=== PATIENT | male | born 1945 | race Caucasian/White ===

== ENCOUNTER 2019-12-18 08:03 | Outpatient (CLI) | payer MEDICARE, SELFPAY ==
--- NOTE | 2019-12-18 08:09 | CT_ITS ---
WS: [id number] CT CHEST, ABDOMEN AND PELVIS WITH CONTRAST HISTORY: RENAL CELL CANCER TECHNIQUE: Contiguous 5 mm axial imaging performed through the chest, abdomen and pelvis with IV cont rast, oral contrast has been provided. Coronal and sagittal reformats chest. Coronal and sagittal ref ormats through the abdomen and pelvis. All CT scans at [facility] use at least one of the se dose optimization techniques: automated exposure control; mA and/or kV adjustment per patient size (includes targeted exams where dose is matched to clinical indication); or iterative reconstruction. CONTRAST: Visipaque 320; 95 mL IV. DLP: 1327.17 mGy.cm COMPARISON: 06/19/2019 and 02/22/[address]: Prior LEFT lower lobectomy. No pulmonary mass or pneumonia. No nodules. Mild dilatation of the ascending aorta at 4.1 cm. Mild atherosclerosis. Pulmonary artery size is normal. Mild enlargemen t of the heart chambers. No pericardial pleural effusion. No mediastinal or hilar adenopathy. 11 mm d istal paraesophageal lymph node is enhancing but not significantly increased in size. Abdomen CT: Small lymph nodes are reidentified superior and anterior to the RIGHT lobe of the liver a long the diaphragmatic surface, epiphrenic location. The largest measures 1.4 cm. Not significantly c hanged in size. Status post Whipple procedure. Mild pneumobilia and variable enhancement throughout the liver. No met astatic disease within the liver. There is very mild intrahepatic duct dilatation which is similar to the prior study. Prior cholecystectomy. Ovoid cystic mass in the region of the pancreatic head resec tion measures 3.0 x 6.4 cm and is similar to the prior examination. Thought to be related to the jeju nostomy. No progression since 06/19/2019 but increased in size since 02/22/2019. Prior splenectomy and LEFT nephrectomy. Mild cortical thinning of the RIGHT kidney. There are multiple cysts scattered thro ughout the parenchyma. There are a few that or not simple cysts. Scattered plaque within the aorta. RIGHT adrenal metastatic lesion is enhancing measuring 3.0 x 3.3 cm with increase in size since 2018. LEFT adrenal gland is normal size. Several lymph nodes along the lesser curvature the stomach of increased in size and number. The large st lymph node which is new measures 11 mm. Smaller stable lymph nodes at the celiac axis. Lymph node anterior to the IVC has increased slightly in size measuring 17 mm and is more lobulated in appearanc e. Pelvic CT: No free fluid in the pelvis. No adenopathy along the iliac chains. Partially distended uri nary bladder with wall thickening. Prostate gland central calcifications. No change in appearance of the osseous structures. No osteoblastic or osteolytic interval change. CT/CT chest abd pel w con* IMPRESSION: 1. Mild progression of mesenteric and retroperitoneal lymph nodes since 019. 2. Moderate increase in size of the metastatic lesion in the RIGHT adrenal gla nd. 3. No metastatic disease to the lungs. 4. Prior Whipple procedure, cholecystectomy, LEFT nephrectomy and splenectomy.
[2019-12-18] MEDS: iohexol 300 mg/mL 50 mL Btl PO (08:13)
[2019-12-18 08:28] LABS: Basophils # 0.1 10^3/uL (0.0-0.1); Basophils % 0.6 %; Eosinophils # 0.2 10^3/uL (0.0-0.8); Eosinophils % 1.8 %; Hematocrit 41.7 % (42.0-52.0); Hemoglobin 13.4 g/dL (11.7-16.6); Lymphocytes # 2.4 10^3/uL (0.8-4.8); Mean Corpuscular HGB Conc 32.1 g/dL (30.0-36.0); Mean Corpuscular Hemoglobin 26.4 pg (28.0-34.0); Mean Corpuscular Volume 82.2 fL (80-94); Mean Platelet Volume 11.8 fL (7.4-10.4); Monocytes # 1.7 10^3/uL (0.2-0.9); Monocytes % 14.7 %; Neutrophils # 7.4 10^3/uL (1.8-7.7); Neutrophils % 62.6 %; Nucleated Red Blood Cells % 0 %; Platelet Count 441 10^3/cmm (130-400); Red Blood Count 5.07 10^6/uL (4.1-5.3); Red Cell Distribution Width 14.5 % (12.1-15.1); White Blood Count 11.8 10^3/uL (4.0-10.0)
[2019-12-18 08:52] LABS: Alanine Aminotransferase 13 U/L (0-41); Albumin Level 3.6 g/dL (3.5-5.2); Alkaline Phosphatase 411 IU/L (40-130); Anion Gap 15.3 (5-19); Aspartate Amino Transferase 24 U/L (0-40); Blood Urea Nitrogen 20 mg/dL (8-23); Calcium 9.8 mg/dL (8.5-10.5); Carbon Dioxide 30 mmol/L (22-29); Chloride 96 mmol/L (98-107); Globulin 5.5 g/dL (1.3-4.6); Glucose 157 mg/dL (65-115); Lactate Dehydrogenase 120 U/L (135-225); Potassium 4.3 mmol/L (3.5-5.1); Sodium 137 mmol/L (136-145); Total Bilirubin 0.4 mg/dL (0.15-1.2); Total Protein 9.1 g/dL (6.6-8.7)
[2019-12-18] MEDS: iodixanol 320 mg/mL 100mL Btl IV (09:27)
== END 2019-12-18 08:04 | disposition home or self-care (01) ==
LOC: CT 08:06
PROVIDERS: Family Provider Nurse Practitioner; PCP Nurse Practitioner; Visit Provider Internal Medicine Medical Oncology
DX: C64.2 Malignant neoplasm of left kidney, except renal pelvis (principal); C79.71 Secondary malignant neoplasm of right adrenal gland; R59.0 Localized enlarged lymph nodes; Z93.4 Other artificial openings of gastrointestinal tract status; Z90.5 Acquired absence of kidney; Z90.2 Acquired absence of lung [part of]; Z90.81 Acquired absence of spleen; Z90.411 Acquired partial absence of pancreas
CPT/HCPCS: 36415; 71260; 74177; 80053; 83615; 85025

== ENCOUNTER 2019-12-20 13:03 | Outpatient (CLI) | payer MEDICARE, SELFPAY ==
--- NOTE | 2019-12-24 18:13 | ONC FU_ITS ---
Dr. Man Patient Follow-Up Note Patient: Stu Perez Unit #: [id number]: 1945 Dicatated By: Tanner Man M.D.Date of Visit:Dec 20, 2019 Onc Med Follow-up/Prog Note Chief Complaint: Renal cell cancer. History of Present Illness: This is a 74 year-old man with known metastatic renal cell cancer. He had undergone left radical nephrectomy for renal cell cancer in 2002. Those records are not available, but the records we do have available and indicate that he underwent an R0 resection of metastatic involvement in the pancreas in June 2011. The procedure included pancreaticoduodenectomy, splenectomy, and cholecystectomy. In October 2013 she underwent exploratory laparotomy with left lateral segment hepatectomy, but that pathology was benign. In September 2016 he underwent left lower lobe wedge resection followed by left lower lobectomy for a pulmonary nodule, and that also was confirmed to be metastatic renal cell cancer, but completely resected. A total of 12 lymph nodes were harvested with that procedure, all negative for metastatic involvement. I had seen him initially on 09/07/2017. He had presented with fever, lymphadenopathy, and suspected recurrence of the renal cell cancer. For the preceding month and a half he had been having fever on pretty much a daily basis. He had associated chills and night sweats. He also felt tired and worn out during this time, and his ECOG score had declined to 2. He still had good appetite, and his weight had been stable. His evaluation included CT scans of the chest, abdomen, and pelvis on 08/23/2017. Findings included mild generalized cardiomegaly with no suspicious pulmonary findings or pleural effusion. There were mildly enlarged right epiphrenic lymph nodes, the largest measuring 2.1 x 1.4 cm. Also noted was an enlarged internal mammary lymph node in the third right intercostal space. There was no axillary, mediastinal, or hilar adenopathy noted. The liver had a mildly lobulated contour, but the appearance was otherwise normal. There was mild intrahepatic bile duct dilatation, improved compared to study from January 2017. There was interval enlargement of several gastrohepatic, periportal, mesenteric, and retroperitoneal lymph nodes. The largest was an aorta iliac lymph node measuring 3 x 1.6 cm. Further evaluation with PET/CT on 09/09/2017 showed low-level activity in the right internal mammary lymph node, right epiphrenic lymph nodes, and retroperitoneal lymph nodes, likely indicating metastatic disease from renal cell carcinoma or pancreatic carcinoma. There was no evidence of other metabolically active tumor elsewhere in the body. His laboratory studies from 09/17/2017 included CBC showing mild anemia, hemoglobin 11.1 g. The white blood cell count was elevated at 20,100 with the platelet count elevated at 535,000. Sedimentation rate also was significantly elevated at 73 mm/hour with CRP elevated at 10.600 mg/dL. Chem profile showed normal renal function with BUN 15 and creatinine 1.0 mg/dL. The alkaline phosphatase was significantly elevated at 608/117 IU/L. The bilirubin and the other liver enzymes were normal. Albumin was low 2.0 g/dL. TSH was elevated at 12.100 mIU/mL. Given those findings, I opted to treat him empirically with doxycycline. I had seen him for a followup visit on 10/06/2017. His symptoms had improved dramatically, and at that point I had opted to just monitor him on observation/expectant management. Restaging CT scans of the chest/abdomen, and pelvis on 11/09/2017 showed no evidence of disease progressions. Right anterior epiphrenic and right internal mammary lymph nodes appeared stable. Periportal edema and biliary ductal dilatation appeared similar to the study from August 2017. The liver parenchymal attenuation and enhancement also appeared similar with no evidence of interval hepatic mass. There was slightly decreased retroperitoneal lymphadenopathy. I had seen him for a follow-up visit on 11/10/2017. At that point his alkaline phosphatase level had continued to increase. A subsequent bone scan also showed no evidence of metastatic disease. A restaging CT scans of the chest, abdomen, and pelvis on 02/22/2019 showed increase in size of epiphrenic lymph nodes, the largest cluster measuring 3.4 x 1.8 cm compared to 2.1 x 1 cm on previous studies. There were no focal liver lesions identified. A fluid collection adjacent to the surgical clips in the expected location of the pancreas was noted to have decreased. There was development of an enhancing nodule in the right adrenal gland measuring 1.7 x 1.2 cm. The left adrenal gland appeared unremarkable. The findings were felt to be consistent with metastatic disease. MRI of the abdomen on 02/26/2019 also showed findings consistent with right adrenal metastasis measuring 1.8 x 1.3 cm. Epiphrenic lymph nodes were noted, and there are also numerous enlarged lymph nodes in the gastrohepatic, celiac, periportal, and periaortic distribution noted to be similar to the CT. I had seen him for a follow-up visit on 03/03/2019. He appeared stable clinically, and he opted to continue on observation/expectant management. Repeat CT scans of the chest, abdomen, and pelvis on 06/19/2019 showed right anterior phrenic lymphadenopathy similar to the January 2019 study. There did appear to be some increase in the right adrenal metastatic lesion measuring 1.7 x 2.7 cm compared to 1.2 x 1.9 cm in January. Intra-abdominal and retroperitoneal lymphadenopathy appeared stable or slightly decreased. Restaging PET/CT on 09/16/2019 showed only minimal FDG uptake in the right adrenal mass measuring 3.2 x 2.3 cm. This was felt to be suggestive of a lipid poor adenoma or treated malignancy. Multiple prominent lymph nodes in the left upper quadrant also did not have significant FDG uptake. A right periaortic retroperitoneal soft tissue lesion measuring 1.3 x 2.4 cm was mildly FDG avid, SUV 3.1. Additional soft tissue lesions were evident anterior to the left hepatic lobe, portal territory. These were felt to possibly represent splenules as opposed to metastatic nodes. With those findings, he prefer to continue observation/expectant management. Repeat CT scans of the chest, abdomen, and pelvis on 12/18/2019 showed no evidence of pulmonary nodules and no mediastinal or hilar adenopathy. An 11 mm distal paraesophageal lymph node was noted to have enhancement but was not significantly increased in size. Small lymph nodes superior and anterior to the right lobe of the liver along the diaphragmatic surface were reidentified and not significantly changed in size. The largest measured 1.4 cm. Ovoid cystic mass in the region of the pancreatic head resection measuring 3.0 x 6.4 cm appeared similar to the prior study. There was very mild intrahepatic duct dilatation, similar to the prior study. The right adrenal metastatic lesion was noted to have increased in size measuring 3.0 x 3.3 cm. Several lymph nodes along the lesser curvature of the stomach had also increased in size and number, the largest measuring 11 mm. Smaller nodes at the celiac axis appeared stable. A node anterior to the IVC had increased in size measuring 17 mm. There were no osteoblastic or osteolytic bone lesions identified. He is seen for a followup visit. He has been feeling good generally. He has pretty good energy and he has normal activity. ECOG score is 0. His appetite has been good. His weight is been stable. He has no fever or night sweats. He had a little bit of a cold a few months ago, those symptoms have completely resolved. He does not complain of shortness of breath, cough, or chest pain. He has no GI/ complaints other than occasional heartburn. He has no significant joint or bone pain. He does not complain of headache or dizziness. He has a little bit of numbness/tingling in his toes. He has no other focal neurologic symptoms. Medications: AmLODIPine Besylate 1 (5 mg) Tablet Oral daily, Benazepril HCl 1 (20 mg) Tablet Oral daily, Carafate 2 (1 G) Tablet Oral b.i.d., Creon 2 Capsule (of 90618 Units) Capsule Delayed Release Particles Oral daily, Flonase 1 Rowley(s) (of 50 mcg/act) Suspension Nasal b.i.d. PRN, HumaLOG 7 Units Subcutaneous t.i.d. PRN, Lantus 20 Units (of 100 Units/mL) Subcutaneous at bedtime, Levothyroxine Sodium 1 (137 mcg) Tablet Oral daily Allergies: BANDAIDS, LATEX, and MEDICAL TAPE. Review of Systems: Constitutional - He has pretty good energy. His activity is normal. Appetite is good and weight is stable. No fever or night sweats. ECOG score is 0, ENMT - No sinus congestion/drainage. No mouth sores. No sore throat or difficulty swallowing, Hematologic/Lymphatic - No abnormal bruising or bleeding, Respiratory - No shortness of breath. No cough. No pleuritic pain or hemoptysis, Cardiovascular - No angina pain. No palpitations, Gastrointestinal - No nausea or vomiting. He occasionally has heartburn. No diarrhea or constipation. No blood in the stool or black stools, Genitourinary (M) - No dysuria or hematuria. No urinary frequency. No urgency or incontinence, Musculoskeletal - No joint or bone pain, Integumentary - No skin complications, Neurologic - No headache or dizziness. He has a little bit of numbness and tingling in his toes, Psychiatric - No anxiety or depression. No insomnia. Vital Signs: Performed on Dec 20, 2019 13:31 Height - 69.00 in Weight - 182.4 lbs (HIGH) BSA - 1.99 sq.m BMI - 26.94 Temperature - 97.5 F (LOW) Pulse - 61 /min Respiration - 18 /min BP - 155/84 mm(hg) (HIGH) O2 Sat - 99 % Pain - 0 Physical Examination: Constitutional - He looks good generally, Eyes - Sclerae nonicteric. Conjunctivae clear, ENMT - No lesions noted in the oral cavity, Hematologic/Lymphatic - No cervical, clavicular, or axillary adenopathy, Respiratory - Lungs are clear, Cardiovascular - Heart rhythm is regular. There is a II/ systolic murmur. There is no gallop or rub noted, Abdomen - Soft. Liver is not enlarged. There is no abdominal mass or ascites noted and there is no inguinal adenopathy, Extremities - No edema, Neurologic - No focal neurologic deficits noted. Lab/Imaging: Test performed on Sep 21, 2019 10:42 LDH (Total) 129 U/L Sodium 135 mmol/L Potassium 4.5 mmol/L Chloride 95 mmol/L CO2 29 mmol/L Anion Gap 15.5 BUN 20 mg/dL Creatinine 1.2 mg/dL Cr Clearance (Est) 64.02 mL/min Glucose 133 mg/dl Calcium 9.9 mg/dL Protein, Total 8.3 g/dL Albumin 4.5 g/dL Globulin 3.8 gm/dL Bilirubin, Total 0.5 mg/dL ALT (SGPT) 16 U/L AST (SGOT) 25 U/L Alkaline Phosphatase 394 U/L WBC 12.8 10 3/uL RBC 5.01 10 6/uL HGB 13.5 g/dL HCT 42.9 % MCV 85.6 fl MCH 26.9 pg MCHC 31.5 g/dl RDW 14.4 % Platelet Count 461 10 3/cmm MPV 12.2 fl Neutrophils 8.0 10 3/uL Lymphocytes 2.4 10 3/uL Monocytes 2.1 10 3/uL Eosinophils 0.2 10 3/uL Basophils 0.1 10 3/uL Neutrophil % 63.0 % Lymphocyte % 18.7 % Monocyte % 16.2 % Eosinophil % 1.3 % Basophils % 0.6 % Impression: 1. Patient with stage IV renal cell cancer, previously with disease completely resected. He presents with fever and lymphadenopathy, suspicious for further recurrence of his renal cell cancer, though there is also the possibility of an infectious process. 2. He had originally undergone left nephrectomy in 2002. 3. In 2010 he underwent R0 resection of metastatic involvement in the pancreas. The procedure included pancreatectomy, splenectomy, and cholecystectomy. 4. In September 2016 he underwent complete resection of left lower lobe lung metastasis. That procedure included wedge resection followed by left lower lobectomy. His other medical illnesses include: 5. Hypertension. 6. Type II diabetes. 7. GERD. 8. Hypothyroidism. 9. Nephrolithiasis. His laboratory evaluation in September showed mild anemia with associated leukocytosis and thrombocytosis. He had significantly elevated sedimentation rate and CRP levels and his alkaline phosphatase also was significantly elevated. He was given empiric antibiotic therapy with doxycycline, and his clinical status improved dramatically. On his follow-up in November 2017 he still had increasing alkaline phosphatase, but without evidence of disease progression by CT scan or bone scan. At that point he continued on observation/expectant management. Restaging CT and MRI studides in January 2019 showed evidence of new right adrenal metastasis as well as multiple sites of suspected lymph node involvement. At that time he was not overtly symptomatic, and he opted to continue on observation/expectant management. During follow-up there has been further increase in the size of the right adrenal lesion. By PET CT it now measures 3.2 x 2.3 cm compared to 1.7 x 1.2 cm in January 2019. It did not show significant FDG uptake, but as it does appear to be showing progressive enlargement, the appearance was highly suggestive of metastasis. At that point he was still doing well clinically, and he preferred to continue observation/expectant management. His current CT now shows further progression of the right adrenal metastatic lesion. There also has been slight increase in some of the lymph nodes in the lower chest/upper abdomen. He continues to have significantly elevated alkaline phosphatase level. His clinical status remained stable, but the CT findings are consistent with a slowly progressive metastatic process. Plan: The CT findings and CT images were reviewed with the patient and his . Given the continued progression of the right adrenal metastasis, I am going to review his scans again with the radiologist to determine whether he may have a site of disease that is accessible for biopsy. Signed By: Tanner Man M.D. <<Signature on File>>
== END 2019-12-20 13:04 | disposition home or self-care (01) ==
PROVIDERS: Family Provider Nurse Practitioner; PCP Nurse Practitioner; Visit Provider Internal Medicine Medical Oncology
DX: C79.71 Secondary malignant neoplasm of right adrenal gland (principal); Z85.528 Personal history of other malignant neoplasm of kidney; R74.8 Abnormal levels of other serum enzymes; I10 Essential (primary) hypertension; E11.9 Type 2 diabetes mellitus without complications; K21.9 Gastro-esophageal reflux disease without esophagitis; E03.9 Hypothyroidism, unspecified; Z87.442 Personal history of urinary calculi; Z92.21 Personal history of antineoplastic chemotherapy; Z90.410 Acquired total absence of pancreas; Z90.5 Acquired absence of kidney; Z90.2 Acquired absence of lung [part of]; Z90.49 Acquired absence of other specified parts of digestive tract
CPT/HCPCS: 99214

== ENCOUNTER → 2020-01-08 07:35 | Day surgery (SDC) | payer MEDICARE, SELFPAY ==
[2020-01-05 16:08] VITALS: BMI 24.4
[2020-01-08 08:10] VITALS: BP 146/95; PULSE 62; RESP 18; TEMP 36.2; O2SAT 99
[2020-01-08] MEDS: sodium chloride 0.9% 1,000 ML 30 ML (08:30)
[2020-01-08 08:31] LABS: Glucose Point of Care 147 mg/dL (70-110)
[2020-01-08 08:48] LABS: INR 1.09 (0.8-1.2)
[2020-01-08 08:49] LABS: Partial Thromboplastin Time 35.1 SECONDS (23.9-36.7)
--- NOTE | 2020-01-08 10:28 | SUR.OPER ---
CT bx canceled per Dr. Felix after talking with Dr. Man about the risks related to the location and vascular access around the mass.
== END ==
PROVIDERS: Family Provider Nurse Practitioner; PCP Nurse Practitioner; Visit Provider Internal Medicine Medical Oncology
DX: Z53.8 Procedure and treatment not carried out for other reasons (principal); C64.9 Malignant neoplasm of unspecified kidney, except renal pelvis
CPT/HCPCS: 36415; 36416; 82962; 85610; 85730; J2250; J2310; J3010; J3490; J7030

== ENCOUNTER 2020-09-02 07:29 | Outpatient (CLI) | payer MEDICARE, SELFPAY ==
--- NOTE | 2020-09-02 07:45 | XRR_ITS ---
PROCEDURE INFORMATION: Exam: XR Abdomen, 1 View Exam date and time: 09/02/2020 7:50 AM Age: 75 years old Clinical indication: Condition or disease; Kidney or ureter condition; Calculus (stone) in kidney; Prior surgery; Surgery type: Pancreas, spleen, gallbladder, part of liver, stomach, left kidney removal; Additional info: Renal stone TECHNIQUE: Imaging protocol: XR of the abdomen. Views: Frontal supine view of the abdomen. 1 View. COMPARISON: CT chest abd pel w con* 12/18/2019 9:32 AM FINDINGS: Gastrointestinal tract: bowel gas pattern is nonspecific. Air filled large bowel including distal rectal gas. Moderate amount stool throughout the large bowel. Intraperitoneal space: Numerous surgical clips in the mid epigastrium and left upper abdomen. Likely prior nephrectomy. Bones/joints: Unremarkable. XR/XR KUB [id number] IMPRESSION: 1. Bowel gas pattern is nonspecific. Air filled large bowel including distal rectal gas. 2. Moderate amount stool throughout the large bowel.
== END 2020-09-02 07:30 | disposition home or self-care (01) ==
PROVIDERS: Family Provider Nurse Practitioner; PCP Nurse Practitioner; Visit Provider Urology
DX: N20.0 Calculus of kidney (principal)
CPT/HCPCS: 74018; 81003

== ENCOUNTER 2021-09-02 06:44 | Outpatient (CLI) | payer MEDICARE, SELFPAY ==
--- NOTE | 2021-09-02 07:15 | XRR_ITS ---
PROCEDURE INFORMATION: Exam: XR Abdomen Exam date and time: 09/02/2021 7:15 AM Age: 76 years old Clinical indication: Condition or disease; Other: Urolithiasisi TECHNIQUE: Imaging protocol: XR of the abdomen. Views: Frontal supine view of the abdomen. 1 View. COMPARISON: CR XR KUB [id number] 09/02/2020 7:44 AM FINDINGS: Tubes, catheters and devices: Numerous surgical clips are present. Gastrointestinal tract: Normal. No bowel dilation. Organs: A 5 mm calcification projects on the lower pole of the right kidney. No calcifications are seen in the course of the ureters. Bones/joints: Unremarkable. XR/XR KUB [id number] IMPRESSION: 1. Right nephrolithiasis. 2. No acute abnormality . Radiation Dose CTDIVOL = (mGy): DLP = (mGy-cm)
== END 2021-09-02 06:45 | disposition home or self-care (01) ==
PROVIDERS: PCP Nurse Practitioner; Visit Provider Urology
DX: N20.0 Calculus of kidney (principal)
CPT/HCPCS: 74018; 81003

== ENCOUNTER 2021-09-02 08:41 | Outpatient (CLI) | payer MEDICARE, SELFPAY ==
[2021-09-02 09:17] LABS: Basophils # 0.1 10^3/uL (0.0-0.1); Basophils % 0.6 %; Eosinophils # 0.2 10^3/uL (0.0-0.8); Eosinophils % 1.9 %; Hematocrit 43.7 % (42.0-52.0); Hemoglobin 13.7 g/dL (11.7-16.6); Lymphocytes # 2.8 10^3/uL (0.8-4.8); Lymphocytes % 23.1 %; Mean Corpuscular HGB Conc 31.4 g/dL (30.0-36.0); Mean Corpuscular Volume 86.2 fl (80-94); Mean Platelet Volume 12.7 fL (7.4-10.4); Monocytes % 16.4 %; Neutrophils # 7.11 10^3/uL (1.8-7.7); Neutrophils % 57.8 %; Nucleated Red Blood Cells % 0 %; Platelet Count 419 10^3/cmm (130-400); Red Blood Count 5.07 10^6/uL (4.1-5.3); Red Cell Distribution Width 15.6 % (12.1-15.1); White Blood Count 12.3 10^3/uL (4.0-10.0)
[2021-09-02 09:43] LABS: Alanine Aminotransferase 14 U/L (0-41); Albumin Level 3.8 g/dL (3.5-5.2); Alkaline Phosphatase 385 IU/L (40-130); Aspartate Amino Transferase 24 U/L (0-40); Blood Urea Nitrogen 18 mg/dL (8-23); Calcium 9.4 mg/dL (8.5-10.5); Carbon Dioxide 31 mmol/L (22-29); Chloride 97 mmol/L (98-107); Globulin 4.4 g/dL (1.3-4.6); Glucose 76 mg/dL (65-115); Osmolality Calculated 283 mOsm/kg (285-295); Sodium 136 mmol/L (136-145); Total Bilirubin 0.5 mg/dL (0.15-1.2); Total Protein 8.2 g/dL (6.6-8.7)
[2021-09-02 09:45] LABS: Anion Gap 12.4 (5-19); Lactate Dehydrogenase 184 U/L (135-225); Potassium 4.4 mmol/L (3.5-5.1)
[2021-09-02 09:56] LABS: Slide Review Slide Review Perform
[2021-09-03 14:22] LABS: Erythrocyte Sedimentation Rate 25 mm/hr (0-10)
== END 2021-09-02 08:42 | disposition home or self-care (01) ==
LOC: ONCMED 08:44
PROVIDERS: PCP Nurse Practitioner; Visit Provider Internal Medicine Medical Oncology
DX: C64.2 Malignant neoplasm of left kidney, except renal pelvis (principal); C78.02 Secondary malignant neoplasm of left lung; C78.89 Secondary malignant neoplasm of other digestive organs; N20.0 Calculus of kidney
CPT/HCPCS: 36415; 74018; 80053; 81003; 83615; 85025; 85651

== ENCOUNTER 2021-09-04 06:38 | Outpatient (CLI) | payer MEDICARE, SELFPAY ==
--- NOTE | 2021-09-08 06:20 | ONC FU_ITS ---
Dr. Man Patient Follow-Up Note Patient: Stu Perez Unit #: [id number]: 1945 Dicatated By: Tanner Man M.D.Date of Visit:Sep 04, 2021 Onc Med Follow-up/Prog Note Chief Complaint: Renal cell cancer. History of Present Illness: This is a 76 year-old man with known metastatic renal cell cancer. He had undergone left radical nephrectomy for renal cell cancer in 2002. The available records indicated that he underwent an R0 resection of metastatic involvement in the pancreas in June 2011. The procedure included pancreaticoduodenectomy, splenectomy, and cholecystectomy. In October 2013 he underwent exploratory laparotomy with left lateral segment hepatectomy, but that pathology was benign. In September 2016 he underwent left lower lobe wedge resection followed by left lower lobectomy for a pulmonary nodule, and that also was confirmed to be metastatic renal cell cancer, but completely resected. A total of 12 lymph nodes were harvested with that procedure, all negative for metastatic involvement. I had seen him initially on 09/07/2017. He had presented with fever, lymphadenopathy, and suspected recurrence of the renal cell cancer. For the preceding month and a half he had been having fever on pretty much a daily basis. He had associated chills and night sweats. He also felt tired and worn out during this time, and his ECOG score had declined to 2. He still had good appetite, and his weight had been stable. His evaluation included CT scans of the chest, abdomen, and pelvis on 08/23/2017. Findings included mild generalized cardiomegaly with no suspicious pulmonary findings or pleural effusion. There were mildly enlarged right epiphrenic lymph nodes, the largest measuring 2.1 x 1.4 cm. Also noted was an enlarged internal mammary lymph node in the third right intercostal space. There was no axillary, mediastinal, or hilar adenopathy noted. The liver had a mildly lobulated contour, but the appearance was otherwise normal. There was mild intrahepatic bile duct dilatation, improved compared to study from January 2017. There was interval enlargement of several gastrohepatic, periportal, mesenteric, and retroperitoneal lymph nodes. The largest was an aorta iliac lymph node measuring 3 x 1.6 cm. Further evaluation with PET/CT on 09/09/2017 showed low-level activity in the right internal mammary lymph node, right epiphrenic lymph nodes, and retroperitoneal lymph nodes, likely indicating metastatic disease from renal cell carcinoma or pancreatic carcinoma. There was no evidence of other metabolically active tumor elsewhere in the body. His laboratory studies from 09/17/2017 included CBC showing mild anemia, hemoglobin 11.1 g. The white blood cell count was elevated at 20,100 with the platelet count elevated at 535,000. Sedimentation rate also was significantly elevated at 73 mm/hour with CRP elevated at 10.600 mg/dL. Chem profile showed normal renal function with BUN 15 and creatinine 1.0 mg/dL. The alkaline phosphatase was significantly elevated at 608/117 IU/L. The bilirubin and the other liver enzymes were normal. Albumin was low 2.0 g/dL. TSH was elevated at 12.100 mIU/mL. Given those findings, I opted to treat him empirically with doxycycline. I had seen him for a followup visit on 10/06/2017. His symptoms had improved dramatically, and at that point I had opted to just monitor him with expectant management. Restaging CT scans of the chest/abdomen, and pelvis on 11/09/2017 showed no evidence of disease progressions. Right anterior epiphrenic and right internal mammary lymph nodes appeared stable. Periportal edema and biliary ductal dilatation appeared similar to the study from August 2017. The liver parenchymal attenuation and enhancement also appeared similar with no evidence of interval hepatic mass. There was slightly decreased retroperitoneal lymphadenopathy. I had seen him for a follow-up visit on 11/10/2017. At that point his alkaline phosphatase level had continued to increase. A subsequent bone scan also showed no evidence of metastatic disease. A restaging CT scans of the chest, abdomen, and pelvis on 02/22/2019 showed increase in size of epiphrenic lymph nodes, the largest cluster measuring 3.4 x 1.8 cm compared to 2.1 x 1 cm on previous studies. There were no focal liver lesions identified. A fluid collection adjacent to the surgical clips in the expected location of the pancreas was noted to have decreased. There was development of an enhancing nodule in the right adrenal gland measuring 1.7 x 1.2 cm. The left adrenal gland appeared unremarkable. The findings were felt to be consistent with metastatic disease. MRI of the abdomen on 02/26/2019 also showed findings consistent with right adrenal metastasis measuring 1.8 x 1.3 cm. Epiphrenic lymph nodes were noted, and there are also numerous enlarged lymph nodes in the gastrohepatic, celiac, periportal, and periaortic distribution noted to be similar to the CT. I had seen him for a follow-up visit on 03/03/2019. He appeared stable clinically, and he opted to continue on observation/expectant management. Repeat CT scans of the chest, abdomen, and pelvis on 06/19/2019 showed right anterior phrenic lymphadenopathy similar to the January 2019 study. There did appear to be some increase in the right adrenal metastatic lesion measuring 1.7 x 2.7 cm compared to 1.2 x 1.9 cm in January. Intra-abdominal and retroperitoneal lymphadenopathy appeared stable or slightly decreased. Restaging PET/CT on 09/16/2019 showed only minimal FDG uptake in the right adrenal mass measuring 3.2 x 2.3 cm. This was felt to be suggestive of a lipid poor adenoma or treated malignancy. Multiple prominent lymph nodes in the left upper quadrant also did not have significant FDG uptake. A right periaortic retroperitoneal soft tissue lesion measuring 1.3 x 2.4 cm was mildly FDG avid, SUV 3.1. Additional soft tissue lesions were evident anterior to the left hepatic lobe, portal territory. These were felt to possibly represent splenules as opposed to metastatic nodes. With those findings, he prefer to continue observation/expectant management. Repeat CT scans of the chest, abdomen, and pelvis on 12/18/2019 showed no evidence of pulmonary nodules and no mediastinal or hilar adenopathy. An 11 mm distal paraesophageal lymph node was noted to have enhancement but was not significantly increased in size. Small lymph nodes superior and anterior to the right lobe of the liver along the diaphragmatic surface were reidentified and not significantly changed in size. The largest measured 1.4 cm. Ovoid cystic mass in the region of the pancreatic head resection measuring 3.0 x 6.4 cm appeared similar to the prior study. There was very mild intrahepatic duct dilatation, similar to the prior study. The right adrenal metastatic lesion was noted to have increased in size measuring 3.0 x 3.3 cm. Several lymph nodes along the lesser curvature of the stomach had also increased in size and number, the largest measuring 11 mm. Smaller nodes at the celiac axis appeared stable. A node anterior to the IVC had increased in size measuring 17 mm. There were no osteoblastic or osteolytic bone lesions identified. He was seen for a follow-up visit on 12/20/2019. He was feeling good generally. After reviewing the CT scans with the radiologist, it was recommended that he have a CT directed liver biopsy. He was also recommended to be seen again in 1 month, but he failed to return for follow-up. His other medical illnesses include hypertension, type 2 diabetes, hypothyroidism, and GERD. He also has a history of nephrolithiasis. He had smoked in the past, only for couple of years, and he quit back in 1963. He is seen now for a follow-up visit. He says he feels good. He has good energy and has normal activity. His appetite also is good. He has no fever or night sweats. He says his sinuses are occasionally stopped up. He has not had sore mouth or throat. He does not complain of shortness of breath, cough, or chest pain. He has no GI/ complaints other than frequent urination. He has no significant joint or bone pain. He does not complain of headache or dizziness, and he has no focal neurologic symptoms. Medications: AmLODIPine Besylate 1 (5 mg) Tablet Oral daily, Benazepril HCl 1 (20 mg) Tablet Oral daily, Carafate 2 (1 G) Tablet Oral b.i.d., Creon 2 Capsule (of 49365 Units) Capsule Delayed Release Particles Oral daily, Flonase 1 [place](s) (of 50 mcg/act) Suspension Nasal b.i.d. PRN, HumaLOG 7 Units Subcutaneous t.i.d. PRN, Lantus 20 Units (of 100 Units/mL) Subcutaneous at bedtime, Levothyroxine Sodium 1 (125 mcg) Tablet Oral daily Allergies: BANDAIDS, LATEX, and MEDICAL TAPE. Vital Signs: Performed on Sep 04, 2021 08:53 Height - 69.00 in Weight - 180.2 lbs (LOW) BSA - 1.98 sq.m BMI - 26.61 Temperature - 97.9 F (LOW) Pulse - 50 /min (LOW) Respiration - 18 /min BP - 145/84 mm(hg) (HIGH) O2 Sat - 98 % Pain - 0 Fatigue - 0 Physical Examination: Constitutional - He looks good generally, Eyes - Sclerae nonicteric. Conjunctivae clear, ENMT - No lesions noted in the oral cavity, Hematologic/Lymphatic - No cervical, clavicular, or axillary adenopathy, Respiratory - Lungs are clear, Cardiovascular - Heart rhythm is regular. There is a II/ systolic murmur. There is no gallop or rub noted, Abdomen - Soft. Liver is not enlarged. There is no abdominal mass or ascites noted and there is no inguinal adenopathy, Extremities - No edema, Neurologic - No focal neurologic deficits noted. Lab/Imaging: CBC shows hemoglobin 13.7 g, white blood cell count 12,300, and platelet count 419,000. Comprehensive metabolic profile shows normal renal function with BUN 18 and creatinine 1.0 mg/dL. Sed rate is just mildly elevated at 25 mm/h. The alkaline phosphatase remains significantly elevated at 385/130 IU/L. Bilirubin, SGOT, and SGPT levels are normal. LDH is normal 184 U/L. Problem List: 1. Patient with stage IV renal cell cancer, but with disease completely resected. 2. Hypertension. 3. Type II diabetes. 4. GERD. 5. Hypothyroidism. 6. Nephrolithiasis. Problems Addressed with this Encounter and Plan: 1. Patient with stage IV renal cell cancer, but with disease completely resected. He had originally undergone left nephrectomy in 2002. In 2010 he underwent R0 resection of metastatic involvement in the pancreas. The procedure included pancreatectomy, splenectomy, and cholecystectomy. In September 2016 he underwent complete resection of left lower lobe lung metastasis. That procedure included wedge resection followed by left lower lobectomy. In September 2017 he had presented with fever, lymphadenopathy, elevated inflammatory markers, and significantly elevated alkaline phosphatase, suspicious for further recurrence of his renal cell cancer. However, he had complete resolution of his symptoms following empiric antibiotic therapy with doxycycline and he was then just followed expectantly. As of December 2019 his follow-up CT scans showed persistent lymphadenopathy and persistence of an ovoid cystic mass in the region of the pancreatic head resection measuring 3.0 x 6.4 cm. There was evidence of increased size of a suspected right adrenal metastatic lesion measuring 3.0 x 3.3 cm. He was recommended to have a CT directed needle biopsy, but for some reason that did not get scheduled, and then he failed to return for follow-up. He has since then had no further CT imaging. He has persistently elevated alkaline phosphatase level, but his laboratory studies are otherwise unremarkable and he seems to be doing very well clinically. As such, I think it would be reasonable to just continue with expectant management, but I will recommend that he have restaging CT scans with a follow-up visit in 3 months. 2. He has had clinical evidence of pancreatic insufficiency following his pancreatic head resection in 2010. He has had symptomatic improvement with Creon, 2 capsules of 24,000 units taken daily, and that will be continued at the same dosage. Signed By: Tanner Man M.D. <<Signature on File>>
== END 2021-09-04 06:39 | disposition home or self-care (01) ==
LOC: ONCMED 06:38
PROVIDERS: PCP Nurse Practitioner; Visit Provider Internal Medicine Medical Oncology
DX: Z08 Encounter for follow-up examination after completed treatment for malignant neoplasm (principal); Z85.53 Personal history of malignant neoplasm of renal pelvis; I10 Essential (primary) hypertension; E11.9 Type 2 diabetes mellitus without complications; K21.9 Gastro-esophageal reflux disease without esophagitis; E03.9 Hypothyroidism, unspecified; N20.0 Calculus of kidney; Z79.899 Other long term (current) drug therapy; Z79.2 Long term (current) use of antibiotics
CPT/HCPCS: 99214

== ENCOUNTER 2021-11-10 08:26 | Emergency (ER) | payer MEDICARE, SELFPAY ==
[2021-11-10 08:30] VITALS: BP 153/82; PULSE 59; RESP 16; TEMP 36.7; O2SAT 97; BMI 24.4
--- NOTE | 2021-11-10 08:41 | ED_ITS ---
HPI - Neuro Symptoms/Deficit General: Chief Complaint: Neuro Symptoms/Deficit Stated Complaint: stroke like symptoms Time Seen by Provider: 11/10/21 08:35 History of Present Illness: HPI Narrative: 76-year-old male presents to ER with left sided facial drooping. Reports this started 2 days ago. Reports pain in his left ear that has since gone away. Cannot close his left eye, reports left eye is watery, no vision changes. Has not been having any problems swa llowing, but has difficulty drinking due to water dribbling out of the left corner of his mouth and has to chew on the right side of his mouth. Has never had these symptoms before. No falls or arm/leg weakness. Abnormal sensation on the tip of the tongue Onset (ago): day(s) (2) Location: left face Context: sudden onset Associated symptoms: Deny chest pain, malaise, nausea or vomiting Review of Systems Const: Denies: fever(s), chills, body aches, change in appetite, fatigue or malaise ENMT: Denies: throat pain, ear or mastoid pain, nasal discharge or nasal congestion Card: Denies: chest pain, edema, dyspnea on exertion or orthopnea Resp: Denies: dyspnea or productive cough GI: Denies: abdominal pain, nausea, vomiting, hematemesis, coffee ground emesis, diarrhea, constipation, bloating, hematochezia or melena : Denies: flank pain, dysuria, urinary frequency or urinary urgency Skin/Breast: Denies: rash or pruritus PFSH ED PFSH: Medical History DM2 (diabetes mellitus, type 2) HTN (hypertension) Hypothyroidism 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 Urolithiasis Surgical History History of left radical nephrectomy History of lobectomy of lung PARTIAL History of pancreatectomy Hx of cholecystectomy Hx of resection of small bowel Hx of splenectomy Status post laser lithotripsy of ureteral calculus Family History Father , AT AGE 64 KIDNEY CANCER Cancer Mother , AT AGE 83 CAD (coronary artery disease) Social History (Reviewed 11/10/21 @ 09:27 by DRE Ferrara Smoking and tobacco status: former smoker Alcohol intake: never Adopted: No Caregiver/support person: No Lives independently: No Household members: spouse Marital status: Current occupational status: retired History of recent travel: No Physical Exam Const: COMMON NORMALS: average body habitus, patient oriented x3 and alert GENERAL APPEARANCE: cooperative, comfortable, well kempt and well developed NUTRITIONAL APPEARANCE: not obese ORIENTATION/CONSCIOUSNESS: Yes awake, Yes oriented to person and Yes oriented to place HENMT: COMMON NORMALS: normocephalic, atraumatic, EAC's normal, TM's normal bilaterally, Normal external nose present, moist oral mucous membranes and oropharynx normal HEAD & SCALP: normocephalic and atraumatic NOSE: Normal external nose present EXTERNAL AUDITORY CANAL: EAC's normal TYMPANIC MEMBRANE: TM's normal bilaterally MOUTH: Normal oral and palatal mucosa present, lip normal and tongue normal THROAT: posterior oropharynx normal and tonsils normal OTHER: Left sided facial droopiness, left eyelid drooping. Unable to close left eye. Eye: COMMON NORMALS: Equal, round and reactive pupils present, EOMs intact bilaterally, conjunctivae normal and no scleral icterus CONJUNCTIVA: Yes conjunctivae normal PUPIL: Yes Equal, round and reactive pupils present Neck/C-Spine: COMMON NORMALS: no meningeal signs Resp: COMMON NORMALS: normal respiratory effort, No retractions, No use of accessory muscles and clear to auscultation bilaterally AUSCULTATION: clear to auscultation bilaterally Cardio: COMMON NORMALS: regular rate and regular rhythm RATE: regular rate RHYTHM: regular rhythm HEART SOUNDS: no murmurs GI: COMMON NORMALS: Normal to inspection, nondistended, normoactive bowel sounds present, Soft to palpation and No hepatosplenomegaly present PALPATION: Yes Soft to palpation and Yes No hepatosplenomegaly present Extremity: COMMON NORMALS: no clubbing, cyanosis or edema NARRATIVE EXTREMITY EXAM: No upper or lower extremity weakness. Neuro: COMMON NORMALS: patient oriented x3 SENSORIUM/ORIENTATION: Yes alert, Yes oriented to person and Yes oriented to place MENINGEAL SIGNS: Yes no meningeal signs Psych: APPEARANCE: Yes well kempt Skin: COMMON NORMALS: no rashes or lesions noted and turgor normal GENERAL SKIN EXAM: no rashes or lesions noted and turgor normal Course Vital Signs: Vital signs: Vital Signs Temperature 98.0 F 11/10/21 09:03 Pulse Rate 57 L 11/10/21 09:16 Respiratory Rate 17 11/10/21 09:16 Blood Pressure 130/83 11/10/21 09:16 Pulse Oximetry 97 11/10/21 09:16 MDM - Neuro Symptoms/Deficit MDM Narrative: Medical decision making narrative: 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 Discussed diagnosis. We will start him on prednisone and have him follow-up with his primary care doctor in the next week also have him use Lacri-Lube at night for the left eye. Discharge Plan Discharge Patient Disposition: Home Clinical Impression: Perales's palsy Condition: Stable Prescriptions: New prednisone 20 mg tablet 20 mg PO TID 5 Days Qty: 15 RF: 0 No Action Creon 24,000-76,000 -120,000 unit capsule,delayed release(DR/EC) 2 cap PO QID RF: 0 levothyroxine 150 mcg capsule 150 mcg PO DAILY RF: 0 amlodipine 5 mg tablet 5 mg PO DAILY RF: 0 benazepril 20 mg tablet 20 mg PO DAILY RF: 0 sucralfate 1 gram tablet 1 g PO DAILY RF: 0 fluticasone propionate 50 mcg/actuation spray,suspension 50 mcg INTRANASAL DAILY RF: 0 insulin lispro [Humalog KwikPen Insulin] 100 unit/mL insulin pen SUBCUT RF: 0 Lantus Solostar U-100 Insulin 100 unit/mL (3 mL) insulin pen SUBCUT RF: 0 Discharge Orders: Discharge ED (Routine); Ordered 11/10/21 Ordered By: Tonny Nelson Referrals: Sangeeta Rothman APN [Primary Care Provider] - Patient Instructions: Perales Palsy (ED), Opioid Safety Activity Restrictions/Additional Instructions: Follow-up with your primary care doctor within the next week return to the ER if you have further problems. Coding Level of Care Code ED Green Building Engineer for dAan Fwd Exam Comprehensive
[2021-11-10 09:03] VITALS: BP 153/82; PULSE 59; RESP 16; TEMP 36.7; O2SAT 97
[2021-11-10 09:16] VITALS: BP 130/83; PULSE 57; RESP 17; O2SAT 97
--- NOTE | 2021-11-10 09:39 | PC.NURSE ---
Left Voicemail to supervisor picking crew Lacrilube OTC and place drops in Left eye as directed.
== END 2021-11-10 09:14 | disposition home or self-care (01) ==
PROVIDERS: Emergency Provider Family Medicine; PCP Nurse Practitioner
DX: G51.0 Bell's palsy (principal); Z79.4 Long term (current) use of insulin; E11.9 Type 2 diabetes mellitus without complications; I10 Essential (primary) hypertension; Z85.89 Personal history of malignant neoplasm of other organs and systems; Z90.2 Acquired absence of lung [part of]; Z87.891 Personal history of nicotine dependence
CPT/HCPCS: 99283

== ENCOUNTER 2021-12-08 13:37 | Outpatient (CLI) | payer MEDICARE, SELFPAY ==
[2021-12-08 14:19] LABS: Basophils # 0.1 10^3/uL (0.0-0.1); Basophils % 0.6 %; Eosinophils # 0.2 10^3/uL (0.0-0.8); Eosinophils % 1.8 %; Hematocrit 41.6 % (42.0-52.0); Hemoglobin 13.2 g/dL (11.7-16.6); Lymphocytes # 2.8 10^3/uL (0.8-4.8); Lymphocytes % 23.9 %; Mean Corpuscular HGB Conc 31.7 g/dL (30.0-36.0); Mean Corpuscular Volume 85.2 fl (80-94); Mean Platelet Volume 11.9 fL (7.4-10.4); Monocytes # 1.7 10^3/uL (0.2-0.9); Monocytes % 14.4 %; Neutrophils # 7.03 10^3/uL (1.8-7.7); Nucleated Red Blood Cells % 0 %; Platelet Count 463 10^3/cmm (130-400); Red Blood Count 4.88 10^6/uL (4.1-5.3); Red Cell Distribution Width 15.5 % (12.1-15.1); White Blood Count 11.9 10^3/uL (4.0-10.0)
[2021-12-08 14:55] LABS: Alanine Aminotransferase 10 U/L (0-41); Albumin Level 4.1 g/dL (3.5-5.2); Alkaline Phosphatase 435 IU/L (40-130); Anion Gap 15.1 (5-19); Aspartate Amino Transferase 19 U/L (0-40); Blood Urea Nitrogen 17 mg/dL (8-23); Calcium 8.8 mg/dL (8.5-10.5); Carbon Dioxide 29 mmol/L (22-29); Chloride 96 mmol/L (98-107); Globulin 3.6 g/dL (1.3-4.6); Glucose 86 mg/dL (65-115); Lactate Dehydrogenase 319 U/L (135-225); Osmolality Calculated 281 mOsm/kg (285-295); Potassium 5.1 mmol/L (3.5-5.1); Sodium 135 mmol/L (136-145); Total Bilirubin 0.4 mg/dL (0.15-1.2); Total Protein 7.7 g/dL (6.6-8.7)
== END 2021-12-08 13:38 | disposition home or self-care (01) ==
PROVIDERS: PCP Nurse Practitioner; Visit Provider Internal Medicine Medical Oncology
DX: C64.2 Malignant neoplasm of left kidney, except renal pelvis (principal); C78.01 Secondary malignant neoplasm of right lung; C78.02 Secondary malignant neoplasm of left lung; C78.89 Secondary malignant neoplasm of other digestive organs; Z90.81 Acquired absence of spleen
CPT/HCPCS: 36415; 80053; 83615; 85025

== ENCOUNTER 2021-12-10 06:47 | Outpatient (CLI) | payer MEDICARE, SELFPAY ==
--- NOTE | 2021-12-10 17:31 | ONC FU_ITS ---
Dr. Man Patient Follow-Up Note Patient: Stu Perez Unit #: [id number]: 1945 Dicatated By: Tanner Man M.D.Date of Visit:Dec 10, 2021 Onc Med Follow-up/Prog Note Chief Complaint: Renal cell cancer. History of Present Illness: This is a 76 year-old man with metastatic renal cell cancer, completely resected. He had undergone left radical nephrectomy for renal cell cancer in 2002. The available records indicated that he underwent an R0 resection of metastatic involvement in the pancreas in June 2011. The procedure included pancreaticoduodenectomy, splenectomy, and cholecystectomy. In October 2013 he underwent exploratory laparotomy with left lateral segment hepatectomy, but that pathology was benign. In September 2016 he underwent left lower lobe wedge resection followed by left lower lobectomy for a pulmonary nodule, and that also was confirmed to be metastatic renal cell cancer, but completely resected. A total of 12 lymph nodes were harvested with that procedure, all negative for metastatic involvement. I had seen him initially on 09/07/2017. He had presented with fever, lymphadenopathy, and suspected recurrence of the renal cell cancer. For the preceding month and a half he had been having fever on pretty much a daily basis. He had associated chills and night sweats. He also felt tired and worn out during this time, and his ECOG score had declined to 2. He still had good appetite, and his weight had been stable. His evaluation included CT scans of the chest, abdomen, and pelvis on 08/23/2017. Findings included mild generalized cardiomegaly with no suspicious pulmonary findings or pleural effusion. There were mildly enlarged right epiphrenic lymph nodes, the largest measuring 2.1 x 1.4 cm. Also noted was an enlarged internal mammary lymph node in the third right intercostal space. There was no axillary, mediastinal, or hilar adenopathy noted. The liver had a mildly lobulated contour, but the appearance was otherwise normal. There was mild intrahepatic bile duct dilatation, improved compared to study from January 2017. There was interval enlargement of several gastrohepatic, periportal, mesenteric, and retroperitoneal lymph nodes. The largest was an aorta iliac lymph node measuring 3 x 1.6 cm. Further evaluation with PET/CT on 09/09/2017 showed low-level activity in the right internal mammary lymph node, right epiphrenic lymph nodes, and retroperitoneal lymph nodes, likely indicating metastatic disease from renal cell carcinoma or pancreatic carcinoma. There was no evidence of other metabolically active tumor elsewhere in the body. His laboratory studies from 09/17/2017 included CBC showing mild anemia, hemoglobin 11.1 g. The white blood cell count was elevated at 20,100 with the platelet count elevated at 535,000. Sedimentation rate also was significantly elevated at 73 mm/hour with CRP elevated at 10.600 mg/dL. Chem profile showed normal renal function with BUN 15 and creatinine 1.0 mg/dL. The alkaline phosphatase was significantly elevated at 608/117 IU/L. The bilirubin and the other liver enzymes were normal. Albumin was low 2.0 g/dL. TSH was elevated at 12.100 mIU/mL. Given those findings, I opted to treat him empirically with doxycycline. I had seen him for a followup visit on 10/06/2017. His symptoms had improved dramatically, and at that point I had opted to just monitor him with expectant management. Restaging CT scans of the chest/abdomen, and pelvis on 11/09/2017 showed no evidence of disease progressions. Right anterior epiphrenic and right internal mammary lymph nodes appeared stable. Periportal edema and biliary ductal dilatation appeared similar to the study from August 2017. The liver parenchymal attenuation and enhancement also appeared similar with no evidence of interval hepatic mass. There was slightly decreased retroperitoneal lymphadenopathy. I had seen him for a follow-up visit on 11/10/2017. At that point his alkaline phosphatase level had continued to increase. A subsequent bone scan also showed no evidence of metastatic disease. A restaging CT scans of the chest, abdomen, and pelvis on 02/22/2019 showed increase in size of epiphrenic lymph nodes, the largest cluster measuring 3.4 x 1.8 cm compared to 2.1 x 1 cm on previous studies. There were no focal liver lesions identified. A fluid collection adjacent to the surgical clips in the expected location of the pancreas was noted to have decreased. There was development of an enhancing nodule in the right adrenal gland measuring 1.7 x 1.2 cm. The left adrenal gland appeared unremarkable. The findings were felt to be consistent with metastatic disease. MRI of the abdomen on 02/26/2019 also showed findings consistent with right adrenal metastasis measuring 1.8 x 1.3 cm. Epiphrenic lymph nodes were noted, and there are also numerous enlarged lymph nodes in the gastrohepatic, celiac, periportal, and periaortic distribution noted to be similar to the CT. I had seen him for a follow-up visit on 03/03/2019. He appeared stable clinically, and he opted to continue on observation/expectant management. Repeat CT scans of the chest, abdomen, and pelvis on 06/19/2019 showed right anterior phrenic lymphadenopathy similar to the January 2019 study. There did appear to be some increase in the right adrenal metastatic lesion measuring 1.7 x 2.7 cm compared to 1.2 x 1.9 cm in January. Intra-abdominal and retroperitoneal lymphadenopathy appeared stable or slightly decreased. Restaging PET/CT on 09/16/2019 showed only minimal FDG uptake in the right adrenal mass measuring 3.2 x 2.3 cm. This was felt to be suggestive of a lipid poor adenoma or treated malignancy. Multiple prominent lymph nodes in the left upper quadrant also did not have significant FDG uptake. A right periaortic retroperitoneal soft tissue lesion measuring 1.3 x 2.4 cm was mildly FDG avid, SUV 3.1. Additional soft tissue lesions were evident anterior to the left hepatic lobe, portal territory. These were felt to possibly represent splenules as opposed to metastatic nodes. With those findings, he prefer to continue observation/expectant management. Repeat CT scans of the chest, abdomen, and pelvis on 12/18/2019 showed no evidence of pulmonary nodules and no mediastinal or hilar adenopathy. An 11 mm distal paraesophageal lymph node was noted to have enhancement but was not significantly increased in size. Small lymph nodes superior and anterior to the right lobe of the liver along the diaphragmatic surface were reidentified and not significantly changed in size. The largest measured 1.4 cm. Ovoid cystic mass in the region of the pancreatic head resection measuring 3.0 x 6.4 cm appeared similar to the prior study. There was very mild intrahepatic duct dilatation, similar to the prior study. The right adrenal metastatic lesion was noted to have increased in size measuring 3.0 x 3.3 cm. Several lymph nodes along the lesser curvature of the stomach had also increased in size and number, the largest measuring 11 mm. Smaller nodes at the celiac axis appeared stable. A node anterior to the IVC had increased in size measuring 17 mm. There were no osteoblastic or osteolytic bone lesions identified. He was seen for a follow-up visit on 12/20/2019. He was feeling good generally. After reviewing the CT scans with the radiologist, it was recommended that he have a CT directed liver biopsy. He was also recommended to be seen again in 1 month, but he failed to return for follow-up. His other medical illnesses include hypertension, type 2 diabetes, hypothyroidism, and GERD. He also has a history of nephrolithiasis. He had smoked in the past, only for couple of years, and he quit back in 1963. Seth is seen for a follow-up visit. I had originally planned to have his CT scans repeated prior to the visit, but for some reason that did not get done. 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 Interestingly, just prior to that his had developed herpes zoster. He was treated with prednisone, but he was unable to tolerate it because of hyperglycemia. He has been feeling pretty good generally. He still has pretty good energy and he has normal activity. ECOG score is zero. His appetite is good. His weight is down just 3 pounds. He does not have fever or night sweats. He has not had sore mouth or throat, and he does not have difficulty swallowing. He does not complain of cough, and he has not been having shortness of breath or chest pain. He currently has no GI or complaints. He has no significant joint or bone pain. He does not complain of headache or dizziness. He has had no skin eruption. Medications: AmLODIPine Besylate 1 (5 mg) Tablet Oral daily, Benazepril HCl 1 (20 mg) Tablet Oral daily, Carafate 2 (1 G) Tablet Oral b.i.d., Creon 2 Capsule ([place] [address]43 Units) Capsule Delayed Release Particles Oral daily, Flonase 1 Thebes(s) (of 50 mcg/act) Suspension Nasal b.i.d. PRN, HumaLOG 7 Units Subcutaneous t.i.d. PRN, Lantus 20 Units (of 100 Units/mL) Subcutaneous at bedtime, Levothyroxine Sodium 1 (125 mcg) Tablet Oral daily Allergies: BANDAIDS, LATEX, and MEDICAL TAPE. Vital Signs: Performed on Dec 10, 2021 10:29 Height - 69.00 in Weight - 177.6 lbs (LOW) BSA - 1.96 sq.m BMI - 26.23 Temperature - 97.6 F (LOW) Pulse - 60 /min Respiration - 16 /min BP - 149/82 mm(hg) (HIGH) O2 Sat - 97 % Pain - 0 Fatigue - 3 Physical Examination: Constitutional - He looks pretty good generally, Eyes - Sclerae nonicteric. Conjunctivae clear, ENMT - No lesions noted in the oral cavity, Hematologic/Lymphatic - No cervical, clavicular, or axillary adenopathy, Respiratory - Lungs are clear, Cardiovascular - Heart rhythm is regular. There is a II/ systolic murmur. There is no gallop or rub noted, Abdomen - Soft. Liver is not enlarged. There is no abdominal mass or ascites noted and there is no inguinal adenopathy, Extremities - No edema, Neurologic - There is left facial paralysis which includes the forehead, consistent with Perales's palsy. Lab/Imaging: CBC shows hemoglobin 13.2 g, white blood cell count 11,900, and platelet count 463,000. Comprehensive metabolic profile shows stable renal function with BUN 17 and creatinine 1.1 mg/dL. Alkaline phosphatase remains elevated at 435/130 IU/L. The bilirubin and the other liver enzymes are normal. LDH is elevated at 319/225 U/L. Problem List: 1. Metastatic renal cell cancer, but with disease completely resected. 2. Hypertension. 3. Type II diabetes. 4. GERD. 5. Hypothyroidism. 6. Nephrolithiasis. Problems Addressed with this Encounter and Plan: 1. Patient with stage IV renal cell cancer, but with disease completely resected. He had originally undergone left nephrectomy in 2003. In 2010 he underwent R0 resection of metastatic involvement in the pancreas. The procedure included pancreatectomy, splenectomy, and cholecystectomy. In September 2016 he underwent complete resection of left lower lobe lung metastasis. That procedure included wedge resection followed by left lower lobectomy. In September 2017 he had presented with fever, lymphadenopathy, elevated inflammatory markers, and significantly elevated alkaline phosphatase, suspicious for further recurrence of his renal cell cancer. However, he had complete resolution of his symptoms following empiric antibiotic therapy with doxycycline and he was then just followed expectantly. As of December 2019 his follow-up CT scans showed persistent lymphadenopathy and persistence of an ovoid cystic mass in the region of the pancreatic head resection measuring 3.0 x 6.4 cm. There was evidence of increased size of a suspected right adrenal metastatic lesion measuring 3.0 x 3.3 cm. He was recommended to have a CT directed needle biopsy, but for some reason that did not get scheduled, and then he failed to return for follow-up. He has a persistently elevated alkaline phosphatase, but thus far he has had no further imaging. As such, he will be scheduled now for restaging CT scans of the chest, abdomen, and pelvis. He will have further evaluation as indicated. 2. 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 He was not able to tolerate steroid therapy. At that time his had developed herpes zoster eruption. She did have treatment with famciclovir. As a precaution, I am also going to treat him empirically with valacyclovir 1000 mg 3 times daily for 7 days. Signed By: Tanner Man M.D. <<Signature on File>>
== END 2021-12-10 06:48 | disposition home or self-care (01) ==
PROVIDERS: PCP Nurse Practitioner; Visit Provider Internal Medicine Medical Oncology
DX: C64.9 Malignant neoplasm of unspecified kidney, except renal pelvis (principal); Z90.5 Acquired absence of kidney; I10 Essential (primary) hypertension; E11.9 Type 2 diabetes mellitus without complications; K21.9 Gastro-esophageal reflux disease without esophagitis; E03.9 Hypothyroidism, unspecified; N20.0 Calculus of kidney; Z90.411 Acquired partial absence of pancreas; G51.0 Bell's palsy; B02.9 Zoster without complications; Z79.899 Other long term (current) drug therapy
CPT/HCPCS: 99214

== ENCOUNTER 2022-01-05 09:09 | Outpatient (CLI) | payer MEDICARE, SELFPAY ==
--- NOTE | 2022-01-05 09:33 | CT_ITS ---
WS: [id number] CT CHEST, ABDOMEN, AND PELVIS TECHNIQUE: Contrast-enhanced CT of the chest, abdomen, and pelvis with coronal and sagittal reformatt ed images. CLINICAL INFORMATION: MALIGNANT NEOPLASM LEFT KIDNEY COMPARISON: CT December 18, 2019, CT June 19, 2019 PET/CT 9 4019 DLP: 1605.[address] scans at [facility] use at least one of these dose optimization techniques: automated e xposure control; mA and/or kV adjustment per patient size (includes targeted exams where dose is matc hed to clinical indication); or iterative reconstruction. CT CHEST: Prior LEFT lower lobectomy. Ectatic ascending thoracic aorta measuring 4.1 cm is unchanged. No medias tinal or hilar lymphadenopathy. Both lungs are well aerated. No acute pulmonary infiltrates. No suspi cious pulmonary parenchymal abnormalities. No evidence of metastatic disease in the lungs. No axillar y lymphadenopathy. RIGHT paraesophageal lymph node measuring [address] ABDOMEN AND PELVIS: Prior postoperative changes with WHipple procedure with cholecystectomy and LEFT nephrectomy. Prior s plenectomy. Mild pneumobilia. Stable ovoid cystic mass in the pancreatic head similar to the prior ex amination. This is thought to be related to the prior jejunostomy. RIGHT adrenal metastatic lesion has significantly increased in size since the prior examination. Toda y this measures approximately 7.8 x 8.2 x 3.1 cm AP by transverse by craniocaudal compared to previou s measuring 3.0 x 3.3 CM. Mild lymphadenopathy progression compared to previous. Slightly progressed lymph nodes along the diap hragmatic surface anterior to the liver measuring 15 mm. Distal paraesophageal lymph node measuring 1 2 mm slightly progressed. Mild interval progression of the upper abdominal mesenteric lymph nodes and periaortic and aortocaval lymph nodes slightly more prominent today. Numerous lymph nodes along the lesser curvature the stomach appear stable. Hepatomegaly. Heterogeneous liver enhancement. Pneumobilia. Normal portal vein and splenic vein. Norm al caliber abdominal aorta. Normal celiac and SMA. Normal sigmoid colon. Enlarged calcified prostate measuring 4.5 CM. Simple RIGHT renal cysts. CT/CT chest abd pel w con* IMPRESSION: 1. Prior Whipple procedure with cholecystectomy and LEFT nephrectomy with sple nectomy. 2. Significant progression of the heterogeneously enhancing centrally necrotic RIGHT adrenal mass today measuring 7.8 x 8.2 x 2.1 cm. 3. Mild interval progression of the mesenteric, periaortic, aortocaval, and re troperitoneal lymph nodes 4. Stable cystic lesion in the pancreas. 5. Hepatomegaly with pneumobilia. 6. No evidence of metastatic disease in the lungs.
[2022-01-05] MEDS: iohexol 300 mg/mL 50 mL Btl PO (10:27)
[2022-01-05] MEDS: iodixanol 320 mg/mL 100mL Btl IV (10:50)
== END 2022-01-05 09:10 | disposition home or self-care (01) ==
PROVIDERS: PCP Nurse Practitioner; Visit Provider Internal Medicine Medical Oncology
DX: C64.2 Malignant neoplasm of left kidney, except renal pelvis (principal); C78.02 Secondary malignant neoplasm of left lung; C78.89 Secondary malignant neoplasm of other digestive organs; K86.89 Other specified diseases of pancreas; R16.0 Hepatomegaly, not elsewhere classified
CPT/HCPCS: 71260; 74177

== ENCOUNTER 2022-01-08 07:45 | Outpatient (CLI) | payer MEDICARE, SELFPAY ==
--- NOTE | 2022-01-11 11:17 | ONC FU_ITS ---
Dr. Man Patient Follow-Up Note Patient: Stu Perez Unit #: [id number]: 1945 Dicatated By: Tanner Man M.D.Date of Visit:Jan 08, 2022 Onc Med Follow-up/Prog Note Chief Complaint: Renal cell cancer. History of Present Illness: This is a 76 year-old man with metastatic renal cell cancer, completely resected. He had undergone left radical nephrectomy for renal cell cancer in 2002. The available records indicated that he underwent an R0 resection of metastatic involvement in the pancreas in June 2011. The procedure included pancreaticoduodenectomy, splenectomy, and cholecystectomy. In October 2013 he underwent exploratory laparotomy with left lateral segment hepatectomy, but that pathology was benign. In September 2016 he underwent left lower lobe wedge resection followed by left lower lobectomy for a pulmonary nodule, and that also was confirmed to be metastatic renal cell cancer, but completely resected. A total of 12 lymph nodes were harvested with that procedure, all negative for metastatic involvement. I had seen him initially on 09/07/2017. He had presented with fever, lymphadenopathy, and suspected recurrence of the renal cell cancer. For the preceding month and a half he had been having fever on pretty much a daily basis. He had associated chills and night sweats. He also felt tired and worn out during this time, and his ECOG score had declined to 2. He still had good appetite, and his weight had been stable. His evaluation included CT scans of the chest, abdomen, and pelvis on 08/23/2017. Findings included mild generalized cardiomegaly with no suspicious pulmonary findings or pleural effusion. There were mildly enlarged right epiphrenic lymph nodes, the largest measuring 2.1 x 1.4 cm. Also noted was an enlarged internal mammary lymph node in the third right intercostal space. There was no axillary, mediastinal, or hilar adenopathy noted. The liver had a mildly lobulated contour, but the appearance was otherwise normal. There was mild intrahepatic bile duct dilatation, improved compared to study from January 2017. There was interval enlargement of several gastrohepatic, periportal, mesenteric, and retroperitoneal lymph nodes. The largest was an aorta iliac lymph node measuring 3 x 1.6 cm. Further evaluation with PET/CT on 09/09/2017 showed low-level activity in the right internal mammary lymph node, right epiphrenic lymph nodes, and retroperitoneal lymph nodes, likely indicating metastatic disease from renal cell carcinoma or pancreatic carcinoma. There was no evidence of other metabolically active tumor elsewhere in the body. His laboratory studies from 09/17/2017 included CBC showing mild anemia, hemoglobin 11.1 g. The white blood cell count was elevated at 20,100 with the platelet count elevated at 535,000. Sedimentation rate also was significantly elevated at 73 mm/hour with CRP elevated at 10.600 mg/dL. Chem profile showed normal renal function with BUN 15 and creatinine 1.0 mg/dL. The alkaline phosphatase was significantly elevated at 608/117 IU/L. The bilirubin and the other liver enzymes were normal. Albumin was low 2.0 g/dL. TSH was elevated at 12.100 mIU/mL. Given those findings, I opted to treat him empirically with doxycycline. I had seen him for a followup visit on 10/06/2017. His symptoms had improved dramatically, and at that point I had opted to just monitor him with expectant management. Restaging CT scans of the chest/abdomen, and pelvis on 11/09/2017 showed no evidence of disease progressions. Right anterior epiphrenic and right internal mammary lymph nodes appeared stable. Periportal edema and biliary ductal dilatation appeared similar to the study from August 2017. The liver parenchymal attenuation and enhancement also appeared similar with no evidence of interval hepatic mass. There was slightly decreased retroperitoneal lymphadenopathy. I had seen him for a follow-up visit on 11/10/2017. At that point his alkaline phosphatase level had continued to increase. A subsequent bone scan also showed no evidence of metastatic disease. A restaging CT scans of the chest, abdomen, and pelvis on 02/22/2019 showed increase in size of epiphrenic lymph nodes, the largest cluster measuring 3.4 x 1.8 cm compared to 2.1 x 1 cm on previous studies. There were no focal liver lesions identified. A fluid collection adjacent to the surgical clips in the expected location of the pancreas was noted to have decreased. There was development of an enhancing nodule in the right adrenal gland measuring 1.7 x 1.2 cm. The left adrenal gland appeared unremarkable. The findings were felt to be consistent with metastatic disease. MRI of the abdomen on 02/26/2019 also showed findings consistent with right adrenal metastasis measuring 1.8 x 1.3 cm. Epiphrenic lymph nodes were noted, and there are also numerous enlarged lymph nodes in the gastrohepatic, celiac, periportal, and periaortic distribution noted to be similar to the CT. I had seen him for a follow-up visit on 03/03/2019. He appeared stable clinically, and he opted to continue on observation/expectant management. Repeat CT scans of the chest, abdomen, and pelvis on 06/19/2019 showed right anterior phrenic lymphadenopathy similar to the January 2019 study. There did appear to be some increase in the right adrenal metastatic lesion measuring 1.7 x 2.7 cm compared to 1.2 x 1.9 cm in January. Intra-abdominal and retroperitoneal lymphadenopathy appeared stable or slightly decreased. Restaging PET/CT on 09/16/2019 showed only minimal FDG uptake in the right adrenal mass measuring 3.2 x 2.3 cm. This was felt to be suggestive of a lipid poor adenoma or treated malignancy. Multiple prominent lymph nodes in the left upper quadrant also did not have significant FDG uptake. A right periaortic retroperitoneal soft tissue lesion measuring 1.3 x 2.4 cm was mildly FDG avid, SUV 3.1. Additional soft tissue lesions were evident anterior to the left hepatic lobe, portal territory. These were felt to possibly represent splenules as opposed to metastatic nodes. With those findings, he prefer to continue observation/expectant management. Repeat CT scans of the chest, abdomen, and pelvis on 12/18/2019 showed no evidence of pulmonary nodules and no mediastinal or hilar adenopathy. An 11 mm distal paraesophageal lymph node was noted to have enhancement but was not significantly increased in size. Small lymph nodes superior and anterior to the right lobe of the liver along the diaphragmatic surface were reidentified and not significantly changed in size. The largest measured 1.4 cm. Ovoid cystic mass in the region of the pancreatic head resection measuring 3.0 x 6.4 cm appeared similar to the prior study. There was very mild intrahepatic duct dilatation, similar to the prior study. The right adrenal metastatic lesion was noted to have increased in size measuring 3.0 x 3.3 cm. Several lymph nodes along the lesser curvature of the stomach had also increased in size and number, the largest measuring 11 mm. Smaller nodes at the celiac axis appeared stable. A node anterior to the IVC had increased in size measuring 17 mm. There were no osteoblastic or osteolytic bone lesions identified. He was seen for a follow-up visit on 12/20/2019. He was feeling good generally. After reviewing the CT scans with the radiologist, it was recommended that he have a CT directed biopsy of the adrenal mass, but for some reason the procedure was never done. He was then seen for a follow-up visit in September 2021. At that point he appeared stable clinically, and he opted to just continue with expectant management. His other medical illnesses include hypertension, type 2 diabetes, hypothyroidism, and GERD. He also has a history of nephrolithiasis. He had smoked in the past, only for couple of years, and he quit back in 1963. INTERIM HISTORY: He return for a follow-up visit on 12/10/2021. 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 He has otherwise appeared stable clinically. His alkaline phosphatase remains significantly elevated at 435/130 IUs/L, but that was similar to previous studies. His restaging CT scans of the chest, abdomen, and pelvis showed significant progression of the heterogeneously enhancing centrally necrotic right adrenal mass measuring 7.8 x 8.2 x 2.1 cm. There is mild interval progression of mesenteric, periaortic, aortocaval, and retroperitoneal lymph nodes. There was no other metastatic disease noted. A cystic lesion in the pancreas appeared stable. He is seen today to review the CT findings and to discuss further management. He is still feeling fine. Medications: AmLODIPine Besylate 1 (5 mg) Tablet Oral daily, Benazepril HCl 1 (20 mg) Tablet Oral daily, Carafate 2 (1 G) Tablet Oral b.i.d., Creon 2 Capsule (of 48281 Units) Capsule Delayed Release Particles Oral daily, Flonase 1 [place](s) (of 50 mcg/act) Suspension Nasal b.i.d. PRN, HumaLOG 7 Units Subcutaneous t.i.d. PRN, Lantus 20 Units (of 100 Units/mL) Subcutaneous at bedtime, Levothyroxine Sodium 1 (125 mcg) Tablet Oral daily Allergies: BANDAIDS, LATEX, and MEDICAL TAPE. Vital Signs: Performed on Jan 08, 2022 08:12 Height - 69.00 in Weight - 178.6 lbs (HIGH) BSA - 1.97 sq.m BMI - 26.37 Temperature - 97.8 F (LOW) Pulse - 64 /min Respiration - 16 /min BP - 136/85 mm(hg) O2 Sat - 96 % Pain - 0 Fatigue - 4 Problem List: 1. Metastatic renal cell cancer, but with disease completely resected. 2. Hypertension. 3. Type II diabetes. 4. GERD. 5. Hypothyroidism. 6. Nephrolithiasis. Problems Addressed with this Encounter and Plan: Patient with stage IV renal cell cancer, but with disease completely resected. He had originally undergone left nephrectomy in 2002. In 2010 he underwent R0 resection of metastatic involvement in the pancreas. The procedure included pancreatectomy, splenectomy, and cholecystectomy. In September 2016 he underwent complete resection of left lower lobe lung metastasis. That procedure included wedge resection followed by left lower lobectomy. In September 2017 he had presented with fever, lymphadenopathy, elevated inflammatory markers, and significantly elevated alkaline phosphatase, suspicious for further recurrence of his renal cell cancer. However, he had complete resolution of his symptoms following empiric antibiotic therapy with doxycycline and he was then just followed expectantly. As of December 2019 his follow-up CT scans showed persistent lymphadenopathy and persistence of an ovoid cystic mass in the region of the pancreatic head resection measuring 3.0 x 6.4 cm. There was evidence of increased size of a suspected right adrenal metastatic lesion measuring 3.0 x 3.3 cm. He was recommended to have a CT directed needle biopsy, but for some reason that did not get scheduled. His current CT scan shows a significant increase in the right adrenal mass, now measuring 7.8 x 8.2 x 2.1 cm compared to 3.0 x 3.3 cm in December 2019. There was mild progression of upper abdominal mesenteric, periaortic, and aortocaval adenopathy. The CT findings and images were reviewed with the patient and his . Given the significant increase in the adrenal mass, it needs to be evaluated with biopsy or perhaps even surgical resection. To that end, I have contacted Dr. Charla, and he will be seeing the patient to discuss further management. We also discussed the fact that if this is confirmed to be metastatic renal cell cancer, there are options available for systemic therapy. Signed By: Tanner Man M.D. <<Signature on File>>
== END 2022-01-08 07:46 | disposition home or self-care (01) ==
PROVIDERS: PCP Nurse Practitioner; Visit Provider Internal Medicine Medical Oncology
DX: Z85.89 Personal history of malignant neoplasm of other organs and systems (principal); E27.8 Other specified disorders of adrenal gland; I10 Essential (primary) hypertension; E11.9 Type 2 diabetes mellitus without complications; E03.9 Hypothyroidism, unspecified; K21.9 Gastro-esophageal reflux disease without esophagitis; Z79.899 Other long term (current) drug therapy; Z87.891 Personal history of nicotine dependence
CPT/HCPCS: 99214

== ENCOUNTER 2022-07-30 09:06 | Outpatient (CLI) | payer MEDICARE, SELFPAY ==
[2022-07-30] MEDS: iohexol 350 mg/mL 100 mL Btl PO (09:12)
[2022-07-30] MEDS: iohexol 350 mg/mL 100 mL Btl IV (09:15)
[2022-07-30 10:48] LABS: Blood Urea Nitrogen 21 mg/dL (8-23)
--- NOTE | 2022-07-30 11:00 | CT_ITS ---
WS: [id number] CT CHEST, ABDOMEN AND PELVIS WITH CONTRAST HISTORY: Restaging renal cancer. TECHNIQUE: Contiguous 5 mm axial imaging performed through the chest, abdomen and pelvis with IV cont rast, oral contrast has been provided. Coronal and sagittal reformats chest. Coronal and sagittal ref ormats through the abdomen and pelvis. All CT scans at [facility] use at least one of these d ose optimization techniques: automated exposure control; mA and/or kV adjustment per patient size (in cludes targeted exams where dose is matched to clinical indication); or iterative reconstruction. CONTRAST: Omnipaque 350; 50 mL IV. DLP: 1520.87 mGy.cm COMPARISON: 01/05/[address]: Status post LEFT lower lobectomy. Lungs are mildly hyperinflated. No pulmonary mass or nodu les are identified. No pericardial or pleural effusions. Mildly ectatic thoracic aorta. Ascending aor ta measures 4.1 cm. Scattered coronary artery calcifications. No adenopathy. Abdomen CT: Status post prior Whipple procedure. Distal RIGHT paraesophageal lymph node has decreased in size from 14 to 9 mm. Prior cholecystectomy. Pneumobilia is evident. Mild lobulations along the s urface of the liver. No enhancing mass identified. Small lymph nodes along the anterior surface of th e liver are stable. Spleen and LEFT kidney is been removed. Prior RIGHT adrenalectomy. LEFT adrenal g land is normal size. Scattered cysts throughout the RIGHT kidney. No solid mass identified. No obstru ction. Wall thickening involving the antrum of the stomach surrounding the sutures. Similar to prior studies . Cannot exclude tumor but this all may be postoperative and postinflammatory or related. Lymph nodes have not increased in size or number in the mesentery. Retroperitoneal and aortocaval and periaortic lymph nodes have significantly improved in size and number. Largest aortocaval lymph node now measur es 11 mm. Atherosclerosis aorta. No ascites. Pelvic CT: Diffuse fecal retention in the pelvis. No free fluid and no adenopathy. Partially distende d bladder. No osteoblastic or osteolytic lytic bone lesions are identified. CT/CT chest abd pel w con* IMPRESSION: 1. Status post LEFT lower lobectomy. No metastatic disease within the lungs ar e mediastinum. 2. Interval resection of the large RIGHT adrenal tumor. 3. Prior Whipple procedure, splenectomy and LEFT nephrectomy. 4. Overall there is been a moderate improvement in the size and number of the lymph nodes within the abdomen. None of the lymph nodes have increased in size. Largest lymph node is 11 mm in the aortocaval region. 5. There is mild soft tissue thickening involving the antrum of the stomach. S imilar to prior studies. 6. Diffuse constipation. 7. Heterogeneous appearance of the liver but no discrete mass identified.
== END 2022-07-30 09:07 | disposition home or self-care (01) ==
PROVIDERS: PCP Nurse Practitioner; Visit Provider Nurse Practitioner
DX: C79.71 Secondary malignant neoplasm of right adrenal gland (principal)
CPT/HCPCS: 71260; 74177; 82565; 84520

== ENCOUNTER 2022-08-04 07:34 | Oncology outpatient (recurring) (ONCR) | payer MEDICARE, SELFPAY ==
[2022-08-04 08:45] LABS: Basophils # 0.1 10^3/uL (0.0-0.1); Basophils % 0.6 %; Eosinophils # 0.1 10^3/uL (0.0-0.8); Hematocrit 39.6 % (42.0-52.0); Hemoglobin 12.6 g/dL (11.7-16.6); Lymphocytes # 1.8 10^3/uL (0.8-4.8); Lymphocytes % 22.5 %; Mean Corpuscular HGB Conc 31.8 g/dL (30.0-36.0); Mean Corpuscular Hemoglobin 27.5 pg (28.0-34.0); Mean Corpuscular Volume 86.3 fl (80-94); Mean Platelet Volume 13.1 fL (7.4-10.4); Monocytes # 1.2 10^3/uL (0.2-0.9); Monocytes % 14.5 %; Neutrophils % 61.3 %; Nucleated Red Blood Cells % 0 %; Platelet Count 301 10^3/cmm (130-400); Red Blood Count 4.59 10^6/uL (4.1-5.3); White Blood Count 8.2 10^3/uL (4.0-10.0)
[2022-08-04 08:53] LABS: Erythrocyte Sedimentation Rate 9 mm/hr (0-10)
[2022-08-04 09:10] LABS: Alanine Aminotransferase 27 U/L (0-41); Albumin Level 3.9 g/dL (3.5-5.2); Alkaline Phosphatase 312 U/L (40-130); Anion Gap 12.7 (5-19); Aspartate Amino Transferase 39 U/L (0-40); Blood Urea Nitrogen 20 mg/dL (8-23); Calcium 8.9 mg/dL (8.5-10.5); Carbon Dioxide 32 mmol/L (22-29); Chloride 95 mmol/L (98-107); Glucose 236 mg/dL (65-115); Lactate Dehydrogenase 192 U/L (135-225); Osmolality Calculated 290 mOsm/kg (285-295); Potassium 4.7 mmol/L (3.5-5.1); Sodium 135 mmol/L (136-145); Total Bilirubin 0.5 mg/dL (0.15-1.2); Total Protein 6.9 g/dL (6.6-8.7)
[2022-08-04 09:13] LABS: Slide Review Slide Review Perform
== END 2022-08-31 23:59 | disposition home or self-care (01) ==
PROVIDERS: Nurse Practitioner; PCP Nurse Practitioner; Visit Provider Internal Medicine Medical Oncology
DX: C79.71 Secondary malignant neoplasm of right adrenal gland (principal); K13.21 Leukoplakia of oral mucosa, including tongue; Z90.5 Acquired absence of kidney; Z85.528 Personal history of other malignant neoplasm of kidney
CPT/HCPCS: 36415; 80053; 83615; 85025; 85651; 99214

== ENCOUNTER 2022-09-02 08:19 | Outpatient (CLI) | payer MEDICARE, SELFPAY ==
--- NOTE | 2022-09-02 09:25 | XR_ITS ---
WS: [id number] KUB, AP view, 09/02/2022 Clinical Data: Urolithiasis Comparison: KUB, 09/02/2021 Findings: No abnormal intraabdominal masses or calcifications are seen. There is no dilatated small bowel or ev idence of obstruction. Fecal material obscures detail over both kidneys. There are surgical clips over the upper abdomen, m ainly in the left side of the abdomen. XR/XR KUB [id number] Impression: 1. Large amount of fecal material in the colon. 2. Numerous surgical clips in the upper abdomen.
== END 2022-09-02 08:20 | disposition home or self-care (01) ==
LOC: RAD 08:21
PROVIDERS: PCP Nurse Practitioner; Visit Provider Urology
DX: N20.9 Urinary calculus, unspecified (principal); C64.9 Malignant neoplasm of unspecified kidney, except renal pelvis
CPT/HCPCS: 74018; 99213

== ENCOUNTER 2023-02-16 08:05 | Oncology outpatient (recurring) (ONCR) | payer MEDICARE, SELFPAY ==
[2023-02-16 08:30] LABS: Hematocrit 41.2 % (42.0-52.0); Hemoglobin 13.2 g/dL (11.7-16.6); Mean Corpuscular Hemoglobin 28.8 pg (28.0-34.0); Mean Corpuscular Volume 89.8 fl (80-94); Platelet Count 303 10^3/cmm (130-400); Red Blood Count 4.59 10^6/uL (4.1-5.3); Red Cell Distribution Width 15.5 % (12.1-15.1); White Blood Count 10.4 10^3/uL (4.0-10.0)
[2023-02-16 08:31] LABS: Basophils % 0.4 %; Eosinophils # 0.1 10^3/uL (0.0-0.8); Eosinophils % 0.6 %; Lymphocytes % 18.8 %; Mean Platelet Volume 12.5 fL (7.4-10.4); Monocytes # 1.3 10^3/uL (0.2-0.9); Monocytes % 12.4 %; Neutrophils # 6.98 10^3/uL (1.8-7.7); Neutrophils % 67.3 %; Nucleated Red Blood Cells % 0 %
[2023-02-16 08:56] LABS: Alanine Aminotransferase 18 U/L (0-41); Albumin Level 3.7 g/dL (3.5-5.2); Alkaline Phosphatase 182 U/L (40-130); Anion Gap 13.2 (5-19); Aspartate Amino Transferase 25 U/L (0-40); Blood Urea Nitrogen 20 mg/dL (8-23); Calcium 8.9 mg/dL (8.5-10.5); Carbon Dioxide 30 mmol/L (22-29); Chloride 95 mmol/L (98-107); Globulin 3.1 g/dL (1.3-4.6); Glucose 166 mg/dL (65-115); Lactate Dehydrogenase 180 U/L (135-225); Osmolality Calculated 284 mOsm/kg (285-295); Potassium 4.2 mmol/L (3.5-5.1); Sodium 134 mmol/L (136-145); Total Bilirubin 0.4 mg/dL (0.15-1.2); Total Protein 6.8 g/dL (6.6-8.7)
[2023-02-16 09:14] LABS: Slide Review Slide Review Perform
== END 2023-02-28 23:59 | disposition home or self-care (01) ==
PROVIDERS: PCP Nurse Practitioner; Visit Provider Internal Medicine Medical Oncology
DX: Z08 Encounter for follow-up examination after completed treatment for malignant neoplasm (principal); Z90.5 Acquired absence of kidney; Z85.528 Personal history of other malignant neoplasm of kidney; Z85.118 Personal history of other malignant neoplasm of bronchus and lung; Z90.2 Acquired absence of lung [part of]; Z90.410 Acquired total absence of pancreas; Z90.81 Acquired absence of spleen; Z90.89 Acquired absence of other organs; Z87.891 Personal history of nicotine dependence
CPT/HCPCS: 36415; 80053; 83615; 85025; 99213

== ENCOUNTER → 2023-03-03 09:12 | Outpatient (BNVA) | payer MEDICARE, SELFPAY | PROVIDERS: PCP Nurse Practitioner; Visit Provider Nurse Practitioner Family | DX: L57.0 Actinic keratosis (principal); L21.8 Other seborrheic dermatitis; C44.41 Basal cell carcinoma of skin of scalp and neck | CPT/HCPCS: 11102; 17000; 17003; 99214 ==

== ENCOUNTER → 2023-03-17 07:33 | Outpatient (BNVA) | payer MEDICARE, SELFPAY | PROVIDERS: PCP Nurse Practitioner; Referring Provider Family Medicine; Visit Provider Internal Medicine | DX: E10.9 Type 1 diabetes mellitus without complications (principal); E03.9 Hypothyroidism, unspecified; C79.71 Secondary malignant neoplasm of right adrenal gland; Z85.528 Personal history of other malignant neoplasm of kidney; Z79.890 Hormone replacement therapy; Z79.4 Long term (current) use of insulin | CPT/HCPCS: 80053; 80061; 82044; 83036; 84439; 84443; 99204 ==

== ENCOUNTER → 2023-03-22 07:56 | Outpatient (BNVA) | payer MEDICARE, SELFPAY | PROVIDERS: PCP Nurse Practitioner; Visit Provider Dermatology | DX: C44.42 Squamous cell carcinoma of skin of scalp and neck (principal); L57.0 Actinic keratosis | CPT/HCPCS: 12042; 17000; 17003; 17311; 17312 ==

== ENCOUNTER → 2023-04-01 08:03 | Outpatient (BNVA) | payer MEDICARE, SELFPAY | PROVIDERS: PCP Nurse Practitioner; Visit Provider Dermatology | DX: Z48.02 Encounter for removal of sutures (principal) | CPT/HCPCS: 99212 ==

== ENCOUNTER → 2023-06-14 12:38 | Outpatient (BNVA) | payer MEDICARE, SELFPAY | PROVIDERS: PCP Family Medicine; Visit Provider Nurse Practitioner Family | DX: Z85.828 Personal history of other malignant neoplasm of skin (principal); L57.0 Actinic keratosis; L57.8 Other skin changes due to chronic exposure to nonionizing radiation; L30.8 Other specified dermatitis; D22.39 Melanocytic nevi of other parts of face; L72.9 Follicular cyst of the skin and subcutaneous tissue, unspecified | CPT/HCPCS: 11102; 17000; 17003; 99213 ==

== ENCOUNTER → 2023-06-17 08:59 | Outpatient (BNVA) | payer MEDICARE, SELFPAY | PROVIDERS: PCP Family Medicine; Visit Provider Internal Medicine | DX: E10.9 Type 1 diabetes mellitus without complications; E03.9 Hypothyroidism, unspecified; Z79.4 Long term (current) use of insulin; Z79.890 Hormone replacement therapy | CPT/HCPCS: 99214 ==

== ENCOUNTER 2023-07-12 09:57 | Outpatient (CLI) | payer MEDICARE, SELFPAY ==
--- NOTE | 2023-07-12 11:00 | CT_ITS ---
WS: [id number] CT CHEST, ABDOMEN AND PELVIS WITH CONTRAST. HISTORY: Restaging renal cancer. TECHNIQUE: Contiguous 5 mm axial imaging performed through the chest, abdomen and pelvis with IV cont rast, oral contrast has been provided. Coronal and sagittal reformats chest. Coronal and sagittal ref ormats through the abdomen and pelvis. All CT scans at [facility] use at least one of these d ose optimization techniques: automated exposure control; mA and/or kV adjustment per patient size (in cludes targeted exams where dose is matched to clinical indication); or iterative reconstruction. CONTRAST: Omnipaque 350; 100 mL IV. DLP: 859.87 mGy.cm COMPARISON: 07/30/[address]: Prior LEFT lower lobectomy. Mild volume loss and elevation of the LEFT hemidiaphragm. No pu lmonary mass, nodule or pneumonia. No mediastinal or hilar adenopathy. The heart size is normal. No p ericardial or pleural effusions. Very minimal atherosclerosis aorta. Very small hiatal hernia. Abdomen CT: Normal size liver. Pneumobilia is present. Pneumobilia is likely related to the prior cho lecystectomy. Normal portal vein. No metastatic disease within the liver. Reidentified of the lymph n odes along the anterior hepatic surface and in the pericardiac fat. Largest lymph node is 17 mm. No b ile duct dilatation. Prior Whipple procedure. Again noted is a low-attenuation mass in the region of the previously removed pancreatic head. This low-attenuation mass has been present on prior examinati ons measuring 5.7 x 2.3 cm. Due to long-term stability is probably a postoperative finding. Prior spl enectomy and LEFT nephrectomy. No recurrent mass at the renal bed. Cortical cyst RIGHT kidney. No akil id mass identified. Atherosclerosis aorta. Prior RIGHT adrenalectomy. LEFT adrenal gland is still thalia dent. Stomach is mildly distended with contrast. There is mild thickening of the stomach antrum which is pr obably due to under distention. No obstructive process of the GI tract. Diffuse constipation. No destructive bone lesions. Pelvic CT: Prostate gland calcification. Minimally distended urinary bladder. No free fluid or adenop athy. IMPRESSION: 1. Status post Whipple procedure. The postoperative changes in the soft tissue at the surgical site are stable. 2. Prior splenectomy, LEFT nephrectomy and RIGHT adrenalectomy. 3. No metastatic lesions within the lungs or liver. 4. No adenopathy in the chest, abdomen or pelvis. 5. Mild soft tissue thickening involving the stomach may be due to under distention. 6. Prior LEFT lower lobectomy
[2023-07-12 11:52] LABS: Blood Urea Nitrogen 23 mg/dL (8-23)
[2023-07-12] MEDS: iohexol 350 mg/mL 500 mL Btl (per mL) PO (11:57)
[2023-07-12] MEDS: iohexol 350 mg/mL 500 mL Btl (per mL) IV (11:58)
== END 2023-07-12 09:58 | disposition home or self-care (01) ==
LOC: RAD 09:57
PROVIDERS: PCP Family Medicine; Visit Provider Internal Medicine Medical Oncology
DX: C64.9 Malignant neoplasm of unspecified kidney, except renal pelvis (principal); E89.6 Postprocedural adrenocortical (-medullary) hypofunction; Z98.890 Other specified postprocedural states; Z90.81 Acquired absence of spleen; Z90.5 Acquired absence of kidney; Z90.2 Acquired absence of lung [part of]
CPT/HCPCS: 71260; 74177; 82565; 84520; 99213; Q9967

== ENCOUNTER 2023-07-22 11:09 | Oncology outpatient (recurring) (ONCR) | payer MEDICARE, SELFPAY ==
[2023-07-22 11:30] VITALS: BP 140/80; PULSE 63; RESP 16; TEMP 36.7; O2SAT 98
[2023-07-22 11:42] LABS: Basophils % 0.4 %; Eosinophils % 0.3 %; Hematocrit 40.8 % (37-53); Lymphocytes # 2.2 10^3/uL (0.8-4.8); Lymphocytes % 24.6 %; Mean Corpuscular HGB Conc 32.8 g/dL (30-55); Mean Corpuscular Hemoglobin 29.7 pg (27-33); Mean Corpuscular Volume 90.5 fl (82-101); Mean Platelet Volume 11.9 fL (7.4-10.4); Monocytes % 10.5 %; Neutrophils # 5.79 10^3/uL (1.8-7.7); Nucleated Red Blood Cells % 0 %; Platelet Count 286 10^3/cmm (157-399); Red Blood Count 4.51 10^6/uL (3.85-5.65); Red Cell Distribution Width 14.8 % (12.1-15.1); White Blood Count 9.06 10^3/uL (3.29-11.43)
[2023-07-22 11:53] LABS: Alanine Aminotransferase 16 U/L (0-41); Alkaline Phosphatase 165 U/L (40-130); Aspartate Amino Transferase 21 U/L (0-40); Blood Urea Nitrogen 31 mg/dL (8-23); Calcium 8.9 mg/dL (8.5-10.5); Carbon Dioxide 32 mmol/L (22-29); Chloride 97 mmol/L (98-107); Glucose 143 mg/dL (65-115); Lactate Dehydrogenase 167 U/L (135-225); Osmolality Calculated 291 mOsm/kg (285-295); Sodium 136 mmol/L (136-145); Total Bilirubin 0.5 mg/dL (0.15-1.2)
[2023-07-22 12:11] LABS: Slide Review Slide Review Perform
== END 2023-07-31 23:59 | disposition home or self-care (01) ==
PROVIDERS: PCP Family Medicine; Visit Provider Internal Medicine Medical Oncology
DX: Z90.5 Acquired absence of kidney; C64.2 Malignant neoplasm of left kidney, except renal pelvis; C79.89 Secondary malignant neoplasm of other specified sites; C78.02 Secondary malignant neoplasm of left lung; Z90.2 Acquired absence of lung [part of]; R53.0 Neoplastic (malignant) related fatigue
CPT/HCPCS: 36415; 80053; 83615; 85025; 99214

== ENCOUNTER → 2023-10-14 08:25 | Outpatient (BNVA) | payer MEDICARE, SELFPAY | PROVIDERS: PCP Family Medicine; Visit Provider Nurse Practitioner Family | DX: L57.0 Actinic keratosis (principal); Z85.828 Personal history of other malignant neoplasm of skin; L57.8 Other skin changes due to chronic exposure to nonionizing radiation; L30.8 Other specified dermatitis; D22.5 Melanocytic nevi of trunk | CPT/HCPCS: 17000; 99213 ==

== ENCOUNTER → 2023-12-21 08:50 | Outpatient (BNVA) | payer MEDICARE, SELFPAY | PROVIDERS: PCP Family Medicine; Visit Provider Internal Medicine | DX: E10.9 Type 1 diabetes mellitus without complications (principal); E03.9 Hypothyroidism, unspecified; C79.71 Secondary malignant neoplasm of right adrenal gland; E27.40 Unspecified adrenocortical insufficiency; Z79.4 Long term (current) use of insulin; Z79.890 Hormone replacement therapy | CPT/HCPCS: 36415; 80053; 80061; 82044; 83036; 84439; 84443; 99214 ==

== ENCOUNTER 2024-01-18 11:06 | Oncology outpatient (recurring) (ONCR) | payer MEDICARE, SELFPAY ==
[2024-01-18 11:36] LABS: Basophils % 0.4 %; Eosinophils # 0.1 10^3/uL (0.0-0.8); Eosinophils % 0.6 %; Lymphocytes # 2.1 10^3/uL (0.8-4.8); Lymphocytes % 23.7 %; Mean Corpuscular HGB Conc 32.1 g/dL (30-55); Mean Corpuscular Hemoglobin 28.9 pg (27-33); Monocytes # 1.1 10^3/uL (0.2-0.9); Monocytes % 12.6 %; Neutrophils # 5.64 10^3/uL (1.8-7.7); Neutrophils % 62.5 %; Nucleated Red Blood Cells % 0 %; Platelet Count 309 10^3/cmm (157-399); Red Blood Count 4.78 10^6/uL (3.85-5.65); Red Cell Distribution Width 15.4 % (12.1-15.1); White Blood Count 9.03 10^3/uL (3.29-11.43)
[2024-01-18 11:54] LABS: Alanine Aminotransferase 16 U/L (0-41); Albumin Level 4.1 g/dL (3.5-5.2); Alkaline Phosphatase 141 U/L (40-130); Anion Gap 12.8 (5-19); Aspartate Amino Transferase 21 U/L (0-40); Blood Urea Nitrogen 26 mg/dL (8-23); Carbon Dioxide 29 mmol/L (22-29); Chloride 95 mmol/L (98-107); Globulin 2.9 g/dL (1.3-4.6); Glucose 164 mg/dL (65-115); Osmolality Calculated 282 mOsm/kg (285-295); Potassium 4.8 mmol/L (3.5-5.1); Sodium 132 mmol/L (136-145); Total Bilirubin 0.5 mg/dL (0.15-1.2)
== END 2024-01-30 23:59 | disposition home or self-care (01) ==
PROVIDERS: Nurse Practitioner Family; PCP Family Medicine; Visit Provider Internal Medicine Medical Oncology
DX: C79.71 Secondary malignant neoplasm of right adrenal gland (principal); K13.21 Leukoplakia of oral mucosa, including tongue; Z90.5 Acquired absence of kidney; Z85.528 Personal history of other malignant neoplasm of kidney
CPT/HCPCS: 36415; 80053; 85025; 99213

== ENCOUNTER → 2024-01-27 07:38 | Outpatient (BNVA) | payer MEDICARE, SELFPAY | PROVIDERS: PCP Family Medicine; Visit Provider Internal Medicine | DX: E10.9 Type 1 diabetes mellitus without complications (principal); E03.9 Hypothyroidism, unspecified; E27.40 Unspecified adrenocortical insufficiency; C79.71 Secondary malignant neoplasm of right adrenal gland; Z79.4 Long term (current) use of insulin; Z79.890 Hormone replacement therapy | CPT/HCPCS: 36415; 80053; 80061; 82044; 83036; 84439; 84443; 99214 ==

== ENCOUNTER 2024-02-11 07:33 | Outpatient (CLI) | payer MEDICARE, SELFPAY ==
[2024-02-11 08:05] LABS: Anion Gap 10.4 (5-19); Blood Urea Nitrogen 25 mg/dL (8-23); Calcium 9.4 mg/dL (8.5-10.5); Carbon Dioxide 33 mmol/L (22-29); Chloride 99 mmol/L (98-107); Glucose 240 mg/dL (65-115); Osmolality Calculated 298 mOsm/kg (285-295); Potassium 4.4 mmol/L (3.5-5.1); Sodium 138 mmol/L (136-145)
== END 2024-02-11 07:34 | disposition home or self-care (01) ==
LOC: LAB 07:34
PROVIDERS: PCP Family Medicine; Visit Provider Internal Medicine
DX: E10.9 Type 1 diabetes mellitus without complications (principal); E27.40 Unspecified adrenocortical insufficiency; C79.71 Secondary malignant neoplasm of right adrenal gland
CPT/HCPCS: 36415; 80048

== ENCOUNTER → 2024-05-31 09:01 | Outpatient (BNVA) | payer MEDICARE, SELFPAY | PROVIDERS: PCP Family Medicine; Visit Provider Internal Medicine | DX: E11.9 Type 2 diabetes mellitus without complications (principal); E03.9 Hypothyroidism, unspecified; C79.71 Secondary malignant neoplasm of right adrenal gland; E27.40 Unspecified adrenocortical insufficiency; Z79.4 Long term (current) use of insulin; Z79.890 Hormone replacement therapy | CPT/HCPCS: 99214 ==

== ENCOUNTER → 2024-07-06 09:36 | Outpatient (BNVA) | payer MEDICARE, SELFPAY | PROVIDERS: PCP Family Medicine; Visit Provider Nurse Practitioner Family | DX: L57.8 Other skin changes due to chronic exposure to nonionizing radiation (principal); D18.01 Hemangioma of skin and subcutaneous tissue; L57.0 Actinic keratosis; L91.8 Other hypertrophic disorders of the skin; H01.001 Unspecified blepharitis right upper eyelid; H01.004 Unspecified blepharitis left upper eyelid; L82.1 Other seborrheic keratosis; Z85.828 Personal history of other malignant neoplasm of skin | CPT/HCPCS: 17000; 17110; 99213 ==

== ENCOUNTER 2024-07-20 10:17 | Oncology outpatient (recurring) (ONCR) | payer MEDICARE, SELFPAY ==
[2024-07-20 10:46] LABS: Basophils % 0.4 %; Eosinophils % 0.4 %; Lymphocytes # 1.7 10^3/uL (0.8-4.8); Mean Corpuscular Hemoglobin 30.1 pg (27-33); Mean Corpuscular Volume 91.1 fl (82-101); Mean Platelet Volume 12.4 fL (7.4-10.4); Monocytes # 1.1 10^3/uL (0.2-0.9); Neutrophils # 7.87 10^3/uL (1.8-7.7); Neutrophils % 72.9 %; Nucleated Red Blood Cells % 0 %; Platelet Count 298 10^3/cmm (157-399); Red Blood Count 4.72 10^6/uL (3.85-5.65); Red Cell Distribution Width 15.7 % (12.1-15.1); White Blood Count 10.79 10^3/uL (3.29-11.43)
[2024-07-20 10:57] LABS: Estmated Average Glucose 166; Hemoglobin A1C 7.4 % (4.0-6.0)
[2024-07-20 11:03] LABS: Creatinine Urine, Random 197 mg/dL (39-259); Microalbum Creatinine Ratio Ur 5 mg/dL (0-20); Microalbumin Random Urine 1 ug/dL (0-20)
[2024-07-20 11:11] LABS: Slide Review Slide Review Perform
[2024-07-20 11:12] LABS: Alanine Aminotransferase 14 U/L (0-41); Alkaline Phosphatase 145 U/L (40-130); Anion Gap 13.9 (5-19); Aspartate Amino Transferase 23 U/L (0-40); Blood Urea Nitrogen 29 mg/dL (8-23); Calcium 8.8 mg/dL (8.5-10.5); Carbon Dioxide 29 mmol/L (22-29); Chloride 100 mmol/L (98-107); Chol HDL Ratio 2.17 mg/dL (1.0-5.00); Cholesterol 187 mg/dL (0-200); Free T4 Free Thyroxine 1.48 ng/dL (0.82-1.77); Glucose 187 mg/dL (65-115); HDL Cholesterol 86 mg/dL (60-100); LDL Cholesterol Calculated 87 mg/dL (50-129); LDL HDL Ratio 1.01 RATIO (0.00-3.22); Osmolality Calculated 297 mOsm/kg (285-295); Potassium 4.9 mmol/L (3.5-5.1); Sodium 138 mmol/L (136-145); Thyroid Stimulating Hormone 0.99 uIU/mL (0.27-4.20); Total Bilirubin 0.6 mg/dL (0.15-1.2); Triglycerides 72 mg/dL (0-150)
== END 2024-07-31 23:59 | disposition home or self-care (01) ==
PROVIDERS: Internal Medicine; Nurse Practitioner Family; PCP Family Medicine; Visit Provider Internal Medicine Medical Oncology
DX: Z90.5 Acquired absence of kidney; Z85.528 Personal history of other malignant neoplasm of kidney; Z87.891 Personal history of nicotine dependence; Z08 Encounter for follow-up examination after completed treatment for malignant neoplasm; Z85.07 Personal history of malignant neoplasm of pancreas; Z85.118 Personal history of other malignant neoplasm of bronchus and lung; Z85.858 Personal history of malignant neoplasm of other endocrine glands; E11.9 Type 2 diabetes mellitus without complications; E27.40 Unspecified adrenocortical insufficiency; E03.9 Hypothyroidism, unspecified; Z90.2 Acquired absence of lung [part of]
CPT/HCPCS: 36415; 80053; 80061; 82044; 83036; 84439; 84443; 85025; 99214

== ENCOUNTER → 2024-10-04 09:30 | Outpatient (BNVA) | payer MEDICARE, SELFPAY | PROVIDERS: PCP Family Medicine; Visit Provider Nurse Practitioner Family | DX: L57.8 Other skin changes due to chronic exposure to nonionizing radiation (principal); D22.39 Melanocytic nevi of other parts of face; D48.5 Neoplasm of uncertain behavior of skin; L57.0 Actinic keratosis | CPT/HCPCS: 11102; 17000; 99213 ==

== ENCOUNTER → 2024-11-29 09:22 | Outpatient (BNVA) | payer MEDICARE, SELFPAY | PROVIDERS: PCP Family Medicine; Visit Provider Internal Medicine | DX: E10.9 Type 1 diabetes mellitus without complications (principal); E03.9 Hypothyroidism, unspecified; C79.71 Secondary malignant neoplasm of right adrenal gland; E27.40 Unspecified adrenocortical insufficiency | CPT/HCPCS: 99214 ==

== ENCOUNTER → 2025-05-29 09:13 | Outpatient (BNVA) | payer MEDICARE, SELFPAY | PROVIDERS: PCP Family Medicine; Visit Provider Internal Medicine | DX: E10.9 Type 1 diabetes mellitus without complications (principal); E03.9 Hypothyroidism, unspecified | CPT/HCPCS: 99214 ==

== ENCOUNTER → 2025-10-04 08:37 | Outpatient (BNVA) | payer MEDICARE, SELFPAY | PROVIDERS: PCP Family Medicine; Visit Provider Nurse Practitioner Family | DX: L57.8 Other skin changes due to chronic exposure to nonionizing radiation (principal); L82.1 Other seborrheic keratosis; Z08 Encounter for follow-up examination after completed treatment for malignant neoplasm; Z85.828 Personal history of other malignant neoplasm of skin; L57.0 Actinic keratosis | CPT/HCPCS: 17000; 99213 ==

== ENCOUNTER 2025-10-17 08:20 | Outpatient (CLI) | payer MEDICARE, SELFPAY ==
--- NOTE | 2025-10-17 08:31 | MR_ITS ---
WS: [id number] MRI BRAIN WITH HIGH-RESOLUTION IMAGING THROUGH THE INTERNAL AUDITORY CANALS WITHOUT AND WITH CONTRAST HISTORY: Bilateral Hearing loss COMPARISON: None available. TECHNIQUE: Multiplanar, multisequence imaging is performed through the brain. Additional 3 mm imaging performed in multiple planes through the internal auditory canal. Postcontrast imaging with 18 ml's of MultiHance. No acute intracranial hemorrhage, midline shift, edema or mass effect. Moderate cerebral volume loss. T2 and FLAIR signal scattered hypointensities from small vessel changes. No large infarct. Mild cerebellar atrophy. No significant hippocampal atrophy. Ventricles and extra-axial spaces are normal. No inferior displacement of cerebellar tonsils. Clivus and pituitary gland are normal. Internal and external auditory canals: Unremarkable. Cranial nerves VII and VIII complexes: Unremarkable. No enhancement or mass. Cerebellopontine angles: Normal. Paranasal sinuses: Normal. Mastoid air cells: Normal. Calvarium and scalp: Normal. Visualized [place] and dural venous sinuses demonstrate no abnormality. MR/MR iac's wo/w con* [id number] IMPRESSION: 1. Normal internal auditory canals and cerebellopontine angles. No mass identi fied. 2. Moderate cerebral volume loss. 3. Mild small vessel ischemic changes. 4. No enhancing masses or vascular malformations.
== END 2025-10-17 08:21 | disposition home or self-care (01) ==
LOC: RAD 08:23
PROVIDERS: PCP Nurse Practitioner Adult Health; Visit Provider Nurse Practitioner Family
DX: H91.93 Unspecified hearing loss, bilateral (principal); I67.82 Cerebral ischemia; G93.89 Other specified disorders of brain
CPT/HCPCS: 70553